=== PATIENT | male | born 1955 | race Caucasian/White ===

== ENCOUNTER → 2022-08-05 | Outpatient (CLI) | payer MEDICARE, OTHER ==
--- NOTE | 2022-08-05 15:33 | US ---
EXAMINATION TYPE: US liver DATE OF EXAM: 08/05/2022 COMPARISON: US Renal 04/22/17 CLINICAL INDICATION: Male, 66 years old with history of K74.60 UNSPECIFIED CIRRHOSIS OF LIVER; Cirrho sis. Hx appendectomy. TECHNIQUE: Multiple sonographic images of the right upper quadrant are obtained. FINDINGS: EXAM MEASUREMENTS: Liver Length: 14.1 cm Gallbladder Wall: 0.2 cm CBD: Obscured Right Kidney: 11.8 x 6.4 x 5.1 cm MUFFLE OPERATOR NOTES: Limited due to overlying bowel gas. Pancreas: Only a small portion of the pancreatic neck is seen. Remainder is obscured by bowel gas sh adowing. Liver: Course and echogenic parenchyma. No focal lesion seen. Gallbladder: Fold seen. No abnormal distention, wall thickening, pericholecystic fluid, or shadowing calculi. Evidence for sonographic Garrett's sign: No CBD: Obscured Right Kidney: No hydronephrosis or masses seen IMPRESSION: 1. At least moderate hepatic steatosis. Correlate with LFTs, lipid profile, the patient risk factors. 2. No gallstones. 3. Unable to adequately assess the bile duct or pancreas due to obscuration from bowel gas.
== END | disposition home or self-care (01) ==
LOC: RADUSWWP 08:05
PROVIDERS: ATTEND Internal Medicine Gastroenterology
DX: K76.0 Fatty (change of) liver, not elsewhere classified (principal); K74.60 Unspecified cirrhosis of liver; Z90.49 Acquired absence of other specified parts of digestive tract
CPT/HCPCS: 76705

== ENCOUNTER 2023-11-26 18:10 | Inpatient (IN) | payer MEDICARE ==
--- NOTE | 2023-11-26 18:32 | ED ---
General Adult HPI - General Chief complaint: Altered Mental Status Stated complaint: AMS Time Seen by Provider: 11/26/23 18:12 Source: patient, RN notes reviewed, old records reviewed Limitations: altered mental status - History of Present Illness Initial comments: 67-year-old male presenting with confusion, poor oral intake. The patient was brought in by paramedics with at least several days of worsening confusion. There was multiple medications including Rosine and there was concern that the medications may not be taken appropriately. The patient is able to answer basic questions. Pinpoint pupils on exam. Patient admits to not eating or drinking well for the past several days. Denies alcohol. Denies illicit drugs. No focal neurologic findings according to paramedics. - Related Data Home Medications Medication Instructions Recorded Confirmed ALPRAZolam [Xanax] 1 mg PO TID PRN 11/26/23 11/26/23 Docusate [Colace] 100 mg PO Q12H PRN 11/26/23 11/26/23 HYDROcodone/APAP 10-325MG [Rosine 1 tab PO QID 11/26/23 11/26/23 10-325] HYDROcodone/APAP 5-325MG [Rosine 1 tab PO DAILY PRN 11/26/23 11/26/23 5-325] Simvastatin [Zocor] 20 mg PO HS 11/26/23 11/26/23 Tolterodine ER [Detrol LA] 4 mg PO DAILY 11/26/23 11/26/23 lisinopriL [Zestril] 20 mg PO DAILY 11/26/23 11/26/23 metFORMIN HCL 500 mg PO TID-W/MEALS 11/26/23 11/26/23 Allergies Allergy/AdvReac Type Severity Reaction Status Date / Time tetracycline Allergy Unknown Verified 11/26/23 19:44 Review of Systems ROS Statement: Those systems with pertinent positive or pertinent negative responses have been documented in the HPI. ROS Other: All systems not noted in ROS Statement are negative. Past Medical History Past Medical History: Diabetes Mellitus History of Any Multi-Drug Resistant Organisms: None Reported Past Surgical History: Unable to Obtain Past Psychological History: Unable to Obtain Smoking Status: Never smoker Past Alcohol Use History: None Reported Past Drug Use History: None Reported General Exam Limitations: no limitations General appearance: in no apparent distress Head exam: Present: atraumatic, normocephalic Eye exam: Absent: PERRL (pinpoint) ENT exam: Present: mucous membranes dry Respiratory exam: Present: decreased breath sounds. Absent: respiratory distress Cardiovascular Exam: Present: regular rate, normal rhythm Extremities exam: Present: normal inspection, normal capillary refill Neurological exam: Present: alert. Absent: oriented X3, motor sensory deficit Skin exam: Present: warm, dry, intact Course Vital Signs 11/26/23 11/26/23 11/26/23 18:12 18:46 19:52 Temperature 96.9 F L Pulse Rate 87 89 80 Respiratory 18 16 Rate Blood Pressure 88/52 81/58 O2 Sat by Pulse 91 L 100 Oximetry 11/26/23 20:35 Temperature Pulse Rate 76 Respiratory 14 Rate Blood Pressure 103/62 O2 Sat by Pulse 100 Oximetry Medical Decision Making - Medical Decision Making Was pt. sent in by a medical professional or institution (JACKY Otero, PROMOTIONS OFFICER, urgent care, hospital, or prison...) When possible be specific @ -No Did you speak to anyone other than the patient for history (EMS, parent, family, police, friend...)? What history was obtained from this source @ -No Did you review nursing and triage notes (agree or disagree)? Why? @ -I reviewed and agree with nursing and triage notes Were old charts reviewed (outside hosp., previous admission, EMS record, old EKG, old radiological studies, urgent care reports/EKG's, prison records)? Report findings @ -No old charts were reviewed Differential Altered Mental Status: Hypoglycemia, DKA, hypercapnia, ETOH, overdose, CO poisoning, trauma, myxedema coma, HTN encephalopathy, infection, encephalitis, psychosis, intercranial hemorrhage, hepatic encephalopathy, meningitis, CVA, this is not meant to be an all-inclusive list EKG interpreted by me (3pts min.). @Sinus rhythm rate of 88, [place] interval 168, QRS duration 88, QTc [address] segment elevation. X-rays interpreted by me (1pt min.). @ -[Chest x-ray pending CT interpreted by me (1pt min.). @ -CT pending brain without contrast U/S interpreted by me (1pt. min.). @ -[None done What testing was considered but not performed or refused? (CT, X-rays, U/S, labs)? Why? @ -None What meds were considered but not given or refused? Why? @ -None Did you discuss the management of the patient with other professionals (professionals i.e. DrKelly, PA, PROMOTIONS OFFICER, lab, RT, psych nurse, social services coordinator, certified marine mechanic, teacher, placement officer, therapeutic case manager)? Give summary @ -No Was smoking cessation discussed for >3mins.? @ -No Was critical care preformed (if so, how long)? @ -No Were there social determinants of health that impacted care today? How? (Homelessness, low income, unemployed, alcoholism, drug addiction, transport ation, low edu. Level, literacy, decrease access to med. care, usp, rehab)? @ -No Was there de-escalation of care discussed even if they declined (Discuss DNR or withdrawal of care, Hospice)? DNR status @ -No What co-morbidities impacted this encounter? (DM, HTN, Smoking, COPD, CAD, Cancer, CVA, ARF, Chemo, Hep., AIDS, mental health diagnosis, sleep apnea, morbid obesity)? @ COPD Was patient admitted / discharged? Hospital course, mention meds given and route, prescriptions, significant lab abnormalities, going to OR and other pertinent info. @ -[67-year-old male with altered mental status. Care signed out at shift change awaiting chest x-ray, laboratory testing, CT brain. Patient started on IV fluids for dehydration. Undiagnosed new problem with uncertain prognosis? @ -No Drug Therapy requiring intensive monitoring for toxicity (Heparin, Nitro, Insulin, Cardizem)? @ -No Were any procedures done? @ -No Diagnosis/symptom? @ -AMS, dehydration Acute, or Chronic, or Acute on Chronic? @ acute Uncomplicated (without systemic symptoms) or Complicated (systemic symptoms)? @ -Default Side effects of treatment? @ -No Exacerbation, Progression, or Severe Exacerbation? @ -No Poses a threat to life or bodily function? How? (Chest pain, USA, AR, pneumonia, PE, COPD, DKA, ARF, appy, cholecystitis, CVA, Diverticulitis, Homicidal, Suicidal, threat to staff... and all critical care pts) @ -[yes, CVA, medication overuse - Lab Data Result diagrams: 11/26/23 18:33 11/26/23 18:33 Lab Results 11/26/23 11/26/23 11/26/23 Range/Units 18:31 18:33 18:33 WBC 7.9 (3.8-10.6) k/uL RBC 4.03 L (4.30-5.90) m/uL Hgb 13.0 (13.0-17.5) gm/dL Hct 40.2 (39.0-53.0) % MCV 99.8 (80.0-100.0) fL MCH 32.3 (25.0-35.0) pg MCHC 32.4 (31.0-37.0) g/dL RDW 13.0 (11.5-15.5) % Plt Count 106 L (150-450) k/uL MPV 9.0 Neutrophils % 85 % Lymphocytes % 10 % Monocytes % 2 % Eosinophils % 1 % Basophils % 1 % Neutrophils # 6.7 (1.3-7.7) k/uL Lymphocytes # 0.8 L (1.0-4.8) k/uL Monocytes # 0.2 (0-1.0) k/uL Eosinophils # 0.1 (0-0.7) k/uL Basophils # 0.1 (0-0.2) k/uL PT 10.5 (10.0-12.5) sec INR 0.9 (<1.2) APTT 26.1 (22.0-30.0) sec VBG pH (7.31-7.41) VBG pCO2 (37-51) mmHg VBG HCO3 (24-28) mmol/L Sodium (137-145) mmol/L Potassium (3.5-5.1) mmol/L Chloride (98-107) mmol/L Carbon Dioxide (22-30) mmol/L Anion Gap mmol/L BUN (9-20) mg/dL Creatinine (0.66-1.25) mg/dL Est GFR (CKD-EPI)AfAm (>60 ml/min/1.73 sqM) Est GFR (CKD-EPI)NonAf (>60 ml/min/1.73 sqM) Glucose (74-99) mg/dL POC Glucose (mg/dL) 168 H (70-110) mg/dL POC Glu Glued Wood Tester ID Fletcher, Vikash Calcium (8.4-10.2) mg/dL Total Bilirubin (0.2-1.3) mg/dL AST (17-59) U/L ALT (4-49) U/L Alkaline Phosphatase (38-126) U/L Total Protein (6.3-8.2) g/dL Albumin (3.5-5.0) g/dL 11/26/23 11/26/23 Range/Units 18:33 18:33 WBC (3.8-10.6) k/uL RBC (4.30-5.90) m/uL Hgb (13.0-17.5) gm/dL Hct (39.0-53.0) % MCV (80.0-100.0) fL MCH (25.0-35.0) pg MCHC (31.0-37.0) g/dL RDW (11.5-15.5) % Plt Count (150-450) k/uL MPV Neutrophils % % Lymphocytes % % Monocytes % % Eosinophils % % Basophils % % Neutrophils # (1.3-7.7) k/uL Lymphocytes # (1.0-4.8) k/uL Monocytes # (0-1.0) k/uL Eosinophils # (0-0.7) k/uL Basophils # (0-0.2) k/uL PT (10.0-12.5) sec INR (<1.2) APTT (22.0-30.0) sec VBG pH 7.36 (7.31-7.41) VBG pCO2 52 H (37-51) mmHg VBG HCO3 29 H (24-28) mmol/L Sodium 140 (137-145) mmol/L Potassium 5.8 H (3.5-5.1) mmol/L Chloride 103 (98-107) mmol/L Carbon Dioxide 28 (22-30) mmol/L Anion Gap 9 mmol/L BUN 34 H (9-20) mg/dL Creatinine 0.73 (0.66-1.25) mg/dL Est GFR (CKD-EPI)AfAm >90 (>60 ml/min/1.73 sqM) Est GFR (CKD-EPI)NonAf >90 (>60 ml/min/1.73 sqM) Glucose 165 H (74-99) mg/dL POC Glucose (mg/dL) (70-110) mg/dL POC Glu Glued Wood Tester ID Calcium 9.8 (8.4-10.2) mg/dL Total Bilirubin 1.7 H (0.2-1.3) mg/dL AST 63 H (17-59) U/L ALT 28 (4-49) U/L Alkaline Phosphatase 90 (38-126) U/L Total Protein 8.5 H (6.3-8.2) g/dL Albumin 4.7 (3.5-5.0) g/dL Disposition Clinical Impression: Altered mental status, Dehydration Disposition: ADMITTED IP TO THIS HOSP Condition: Stable Is patient prescribed a controlled substance at d/c from ED?: No Referrals: Alexis Lincoln MD [Primary Care Provider] - 1-2 days Time of Disposition: 20:41
[2023-11-26 18:33] LABS: Glucose,Whole Blood 168 mg/dL (70-110)
[2023-11-26] MEDS: SODIUM CHLORIDE 0.9% 1,000 ML IV ONE (18:38)
[2023-11-26] MEDS: IPRATROPIUM-ALBUTEROL 3 ML NEB INHALATION STA (18:45)
[2023-11-26 18:53] LABS: VBG PH 7.36 (7.31-7.41)
[2023-11-26 18:54] LABS: Basophils # (A) 0.1 k/uL (0-0.2); Basophils % (A) 1 %; Eosinophils # (A) 0.1 k/uL (0-0.7); Eosinophils % (A) 1 %; HCT 40.2 % (39.0-53.0); Lymphocytes # (A) 0.8 k/uL (1.0-4.8); Lymphocytes % (A) 10 %; MCH 32.3 pg (25.0-35.0); MCHC 32.4 g/dL (31.0-37.0); MCV 99.8 fL (80.0-100.0); Monocytes # (A) 0.2 k/uL (0-1.0); Monocytes % (A) 2 %; Neutrophils # (A) 6.7 k/uL (1.3-7.7); Neutrophils % (A) 85 %; Platelet Count 106 k/uL (150-450); RBC 4.03 m/uL (4.30-5.90); WBC 7.9 k/uL (3.8-10.6)
[2023-11-26 19:04] LABS: INR 0.9 (<1.2); Partial Thromboplastin Time 26.1 sec (22.0-30.0); Prothrombin Time 10.5 sec (10.0-12.5)
[2023-11-26 19:19] LABS: ALT 28 U/L (4-49); African American GFR (CKD) >90 (>60 ml/min/1.73 sqM); Albumin 4.7 g/dL (3.5-5.0); Anion Gap 9 mmol/L; Blood Urea Nitrogen 34 mg/dL (9-20); Calcium 9.8 mg/dL (8.4-10.2); Carbon Dioxide 28 mmol/L (22-30); Chloride 103 mmol/L (98-107); Glucose 165 mg/dL (74-99); Non-African American GFR(CKD) >90 (>60 ml/min/1.73 sqM); Sodium 140 mmol/L (137-145); Total Bilirubin 1.7 mg/dL (0.2-1.3); Total Protein 8.5 g/dL (6.3-8.2)
[2023-11-26 19:46] LABS: AST 63 U/L (17-59); Alkaline Phosphatase 90 U/L (38-126); Potassium 5.8 mmol/L (3.5-5.1)
[2023-11-26] MEDS ORDERED: NALOXONE 0.4 MG/ML 1 ML VIAL IV PRN (20:36)
--- NOTE | 2023-11-26 21:00 | CT ---
EXAMINATION TYPE: CT brain wo con CT DLP: 1133.4 mGycm, Automated exposure control for dose reduction was used. DATE OF EXAM: 11/26/2023 7:25 PM COMPARISON: None.. CLINICAL INDICATION:Male, 67 years old with history of Altered mental status, ams TECHNIQUE: Brain: Axial CT images of the brain were obtained with coronal and sagittal reformats created and rev iewed. Contrast used: None. Oral contrast used: None. FINDINGS: Extra-axial spaces: No abnormal extra-axial fluid collections. Basilar cisterns are patent. Ventricular system: Appears dilated slightly out of proportion to the degree of atrophy/sulcal promin ence, this can be seen with superimposed NPH. Cerebral parenchyma: No increased attenuation to suggest acute intraparenchymal hemorrhage. The gra y-white matter interface appears maintained. Moderate to severe generalized brain atrophy. Scattere d hypoattenuating areas are seen within the cerebral white matter, nonspecific but most often seen wi th chronic microvascular ischemic changes; moderate in degree. Cerebellum: No acute abnormality. Mass effect: No evidence of mass effect or midline shift. Intracranial vasculature: Atherosclerotic calcifications of the larger arteries near the skull base. Soft tissues: No acute or concerning abnormality. Visualized orbits: Orbital contents appear grossly intact. Calvarium/osseous structures: No evidence of calvarial fracture. Paranasal sinuses and mastoid air cells: Clear. MRI is more sensitive for detecting acute processes such as infarct, and may be considered if clinica lly warranted. IMPRESSION: 1. No CT evidence of an acute intracranial abnormality. 2. Atrophy and chronic microvascular ischemic white matter changes. Correlate for possible superimpos ed NPH.
[2023-11-26] MEDS ORDERED: IPRATROPIUM-ALBUTEROL 3 ML NEB INHALATION PRN (21:33)
[2023-11-26] MEDS: ACETAMINOPHEN TAB 325 MG TAB PO PRN (22:31)
--- NOTE | 2023-11-26 22:47 | XR ---
EXAMINATION TYPE: XR chest 2V DATE OF EXAM: 11/26/2023 7:12 PM CLINICAL INDICATION:Male, 67 years old with history of ams; [facility] COMPARISON: None TECHNIQUE: XR chest 2V. Frontal and lateral views of the chest.. FINDINGS: Heart is not enlarged. Mildly tortuous and unfolded aorta. No significant vascular congestion. Lungs appear hyperinflated with interstitial coarsening, findings suggestive of COPD/emphysema. No de finite airspace consolidation, pleural effusion, or pneumothorax. Nodular density over the left lung base is felt to represent nipple shadow. ACDF hardware in lower cervical spine. Mild degenerative kellee nges of the shoulders and spine. Partially imaged thoracolumbar spinal fixation hardware. IMPRESSION: No evidence of an acute cardiopulmonary abnormality.
[2023-11-26] MEDS: SODIUM CHLORIDE 0.9% 1,000 ML IV SCH (23:38)
[2023-11-26] MEDS: methylPREDNISolone SOD SUCCI 125 MG/2 ML VIAL IV SCH (23:38)
[2023-11-27] MEDS ORDERED: IPRATROPIUM-ALBUTEROL 3 ML NEB INHALATION SCH
[2023-11-27] MEDS: IPRATROPIUM-ALBUTEROL 3 ML NEB INHALATION SCH (07:48)
[2023-11-27 12:11] LABS: Glucose,Whole Blood 269 mg/dL (70-110)
[2023-11-27 13:50] LABS: Appearance,Urine Clear (Clear); Bilirubin,Urine Negative (Negative); Blood,Urine Negative (Negative); Color,Urine Yellow; Glucose,Urine (UA) 4+ (Negative); Ketones,Urine Negative (Negative); Leukocyte Esterase,Urine Negative (Negative); Nitrite,Urine Negative (Negative); Protein,Urine Trace (Negative)
[2023-11-27] MEDS: DOCUSATE 100 MG CAP PO PRN (13:53)
[2023-11-27] MEDS: OXYBUTYNIN 10 MG TAB.ER.24 PO SCH (13:53)
[2023-11-27 13:59] LABS: Cocaine Screen,Urine Not Detected (NotDetected); Phencyclidine Screen,Urine Not Detected (NotDetected); Urn Cannabinoid Scrn Detected (NotDetected)
[2023-11-27 14:00] LABS: Amphetamine Screen,Urine Not Detected (NotDetected); Barbiturate Screen,Urine Not Detected (NotDetected); Benzodiazepines Screen,Urine Detected (NotDetected); Methadone Screen, Urine Not Detected (NotDetected); Opiate Screen,Urine Detected (NotDetected); Oxycodone Screen, Urine Detected (NotDetected); Tricyclic Antidepressant,Urine Not Detected (NotDetected)
[2023-11-27 17:00] LABS: Glucose,Whole Blood 277 mg/dL (70-110)
[2023-11-27] MEDS: INSULIN ASPART (NovoLOG) 100 UNIT/ML VIAL SQ SCH (17:34)
[2023-11-27 19:48] LABS: Glucose,Whole Blood 252 mg/dL (70-110)
[2023-11-27 19:48] LABS: Glucose,Whole Blood 505 mg/dL (70-110)
--- NOTE | 2023-11-27 20:43 | PN ---
PROGRESS NOTE CHIEF COMPLAINT: Mental status changes, dehydration, malnutrition. HISTORY OF PRESENT ILLNESS: This gentleman is awake and alert, but remains confused. He is not able to urinate. His blood sugars are also elevating. PHYSICAL EXAMINATION: CHEST: Clear. CARDIAC: Sounds sinus. ABDOMEN: Scaphoid. IMPRESSION: 1. Mental status changes. 2. Severe protein-calorie malnutrition. 3. Dehydration. 4. Opioid and tranquilizer abuse. 5. Urinary retention. 6. Elevated blood sugar. PLAN: 1. Plunkett catheter. 2. Sliding scale for blood sugars. 3. PT, OT, and Copy Manager consult. MMODL / IJN: [id number] /
--- NOTE | 2023-11-27 22:01 | HP ---
HISTORY AND PHYSICAL CHIEF COMPLAINT: Altered mental status. HISTORY OF PRESENT ILLNESS: This is the first known admission for this 67-year-old white male who has been a new patient in a practice. He is poorly nourished. He has been insistent on receiving large quantities of opioids and tranquilizers. He apparently was brought to the emergency room with difficulty walking, stating that he had injured his right foot. He does seem to be confused. REVIEW OF SYSTEMS: Is not reliably obtained. He is not complaining of any symptoms including headaches, chest pain, shortness of breath, abdominal pain, etc. Past medical history, family history, and personal and social histories are unremarkable and noncontributory otherwise. His blood sugar is elevated at this time. PHYSICAL EXAMINATION: VITAL SIGNS: Blood pressure is 98/58 with a pulse of 68, respirations of 14 and he is afebrile. GENERAL: He appeared to be weak and malnourished. He is dehydrated. HEAD, EARS, EYES, NOSE, MOUTH AND THROAT: Normal. CHEST: Clear. CARDIAC: Sounds like sinus rhythm. ABDOMEN: Flat and soft. The bladder is distended. EXTREMITIES: Normal except for poor muscle bulk. NEUROLOGICAL: Intact. He is admitted to the hospital with diagnoses of, 1. General weakness and debility. 2. Mental status changes with confusion. 3. Severe protein-calorie malnutrition. 4. Urinary retention. 5. Elevated blood sugars. PLAN: 1. Bed rest. 2. IV fluids. 3. Plunkett catheter drainage. 4. Sliding scale for blood sugars. 5. Continue to look further into his symptoms. 6. PT and OT. 7. Withhold his opioid and Xanax. MMODL / IJN: [id number] /
[2023-11-27 22:21] LABS: Glucose,Whole Blood 299 mg/dL (70-110)
[2023-11-28 06:53] LABS: Glucose,Whole Blood 190 mg/dL (70-110)
[2023-11-28 11:40] LABS: Glucose,Whole Blood 280 mg/dL (70-110)
[2023-11-28 12:07] VITALS: BMI 16.9
[2023-11-28] MEDS: ONDANSETRON 4 MG/2 ML VIAL IVP PRN (16:19)
--- NOTE | 2023-11-28 16:36 | P.CN ---
Psychiatric Consult - . Consult date: 11/28/23 Consult:: 11/28/23 16:35 CONSULTATION Reason for consult: Confusion. identifying Data: The patient is 67 years old, white male, who lives in [place], [place]. Reason for admission: Confusion and poor intake. History of present illness: The patient was brought to the emergency department by EMS. The patient noted that his neighbor, who lives down the [address] called the ambulance because he was not eating or drinking. The patient noted he was having nausea and hiccoughs preventing him to retain any food and fluids for a few days before coming to the hospital. He thinks that his poor nourishment led to confusion. He denied abusing opioids. During this evaluation, the patient was alert, attentive and held a goal directed coherent conversation. On leading questions denied depression, anxiety, hopelessness, worthlessness, suicidal or homicidal ideations. The patient denied to any symptoms of paranoia, or any other delusional thinking, A/V hallucinations. He is on no psychiatric medications. As per patient, he was not going to any out-patient psychiatric treatment. History of past psychiatric illness: The patient noted that he once went for group therapy for short time after losing his house due to lac of money. He was unable to pay the taxes. As per patient his house was paid off. No other out-pt or in-pt psychiatric history. He denied any history SI or HI.. Past medical history: DM Substance abuse history: The patient admitted to Marijuana abuse. He claims to be sober for past 1 year. MSE: Alert and attentive Orientation X3. Pleasant and cooperative. Psychomotor activity: Speech: Normal tone, quality, and quantity Mood: Anxious and worried. Affect: Appropriate to the mood. SI or HI: None Thought content: Normal Thought process: Normal Perceptual disturbance: Normal Cognition: Intact Judgement and Insight: Intact Diagnosis: No acute psychopathology currently. Plan: Will sign off the case. Please reconsult, if MS changes.
[2023-11-28 16:59] LABS: Glucose,Whole Blood 184 mg/dL (70-110)
[2023-11-28 20:11] LABS: Glucose,Whole Blood 304 mg/dL (70-110)
[2023-11-29 07:04] LABS: Glucose,Whole Blood 220 mg/dL (70-110)
[2023-11-29 11:59] LABS: Glucose,Whole Blood 306 mg/dL (70-110)
[2023-11-29 17:06] LABS: Glucose,Whole Blood 289 mg/dL (70-110)
[2023-11-29 19:55] LABS: Glucose,Whole Blood 291 mg/dL (70-110)
--- NOTE | 2023-11-29 21:06 | PN ---
PROGRESS NOTE CHIEF COMPLAINT: Mental status changes, dehydration and malnutrition as well as elevated blood sugars. HISTORY OF PRESENT ILLNESS: This gentleman has become more awake and alert. He has been seen by Psychiatry. His blood sugars are still elevated and he will be started on a long-acting insulin. PHYSICAL EXAMINATION: CHEST: Clear CARDIAC: Normal. ABDOMEN: Flat and soft. IMPRESSION: 1. Mental status changes. 2. Dehydration. 3. Elevated blood sugars. 4. Opioid and tranquilizers abuse. PLAN: Add Levemir 10 units once a day and continue to monitor his blood sugars. MMODL / IJN: [id number] /
--- NOTE | 2023-11-29 21:40 | PN ---
PROGRESS NOTE CHIEF COMPLAINT: Mental status changes, malnutrition, dehydration. HISTORY OF PRESENT ILLNESS: This gentleman is doing fairly well. His blood sugar is significantly elevated, however. This will be addressed. This is a new issue for him. PHYSICAL EXAMINATION: GENERAL: He is still very dehydrated and quite cachectic. HEAD, EARS, EYES, NOSE, MOUTH AND THROAT: Normal. CHEST: Clear. CARDIAC: Unremarkable. ABDOMEN: Flat, soft, nontender. IMPRESSION: 1. Mental status changes. 2. Severe protein-calorie malnutrition. 3. Tachycardia. 4. Elevated blood sugar. PLAN: 1. Address blood sugars. 2. Physical Therapy and Roller Presser Operator. MMODL / IJN: [id number] /
[2023-11-30 07:06] LABS: Glucose,Whole Blood 229 mg/dL (70-110)
[2023-11-30] MEDS: INSULIN DETEMIR (LEVEMIR) 100 UNIT/ML SYR SQ SCH (08:41)
[2023-11-30 11:59] LABS: Glucose,Whole Blood 238 mg/dL (70-110)
[2023-11-30 17:03] LABS: Glucose,Whole Blood 120 mg/dL (70-110)
[2023-11-30] MEDS: lisinopriL 20 MG TAB PO SCH (17:40)
[2023-11-30 20:08] LABS: Glucose,Whole Blood 228 mg/dL (70-110)
[2023-12-01 08:49] LABS: Glucose,Whole Blood 298 mg/dL (70-110)
[2023-12-01 11:53] LABS: Glucose,Whole Blood 209 mg/dL (70-110)
--- NOTE | 2023-12-01 15:34 | P.CN ---
Psychiatric Consult - . Consult date: 12/01/23 Consult:: 12/01/23 15:33 CONSULTATION Reason for consult: Confusion. identifying Data: The patient is 67 years old, white male, who lives in [place], [place]. Reason for admission: Confusion and poor intake. History of present illness: The patient was brought to the emergency department by EMS. The patient noted that his neighbor, who lives down the [address] called the ambulance because he was not eating or drinking. The patient noted he was having nausea and hiccoughs preventing him to retain any food and fluids for a few days before coming to the hospital. He thinks that his poor nourishment led to confusion. He denied abusing opioids. During this evaluation, the patient was alert, attentive and held a goal directed coherent conversation. On leading questions denied depression, anxiety, hopelessness, worthlessness, suicidal or homicidal ideations. The patient denied to any symptoms of paranoia, or any other delusional thinking, A/V hallucinations. He is on no psychiatric medications. As per patient, he was not going to any out-patient psychiatric treatment. History of past psychiatric illness: The patient noted that he once went for group therapy for short time after losing his house due to lac of money. He was unable to pay the taxes. As per patient his house was paid off. No other out-pt or in-pt psychiatric history. He denied any history SI or HI.. Past medical history: DM Substance abuse history: The patient admitted to Marijuana abuse. He claims to be sober for past 1 year. During this evaluation, the patient was seeing TV. He could not tell me what he was watching except stating, some politics.. He was unable to tell me the name of the hospital, where he is, when he came here, reason for being here, location of the building, name of the building, except stating it is . He was unable to hold any meaningful conversation. MSE: Alert and semi attentive Orientation X1 He appeared frail and weak. Pleasant and cooperative. Psychomotor activity: Reduced. Speech: Normal tone, quality, underproductive. Mood: Could not be assessed. Affect: Perplexed and indifferent. SI or HI: None noted Thought content: No Over delusions noted. Thought process: No thought disorder noted. Perceptual disturbance: No hallucinatory behavior noted. 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 Rec: Ativan 0.25 mg po prn q6hrs for severe agitation/anxiety. Fall precautions. Continue current treatment as per your recommendations. Sign off the case.
[2023-12-01 17:37] LABS: Glucose,Whole Blood 166 mg/dL (70-110)
[2023-12-01] MEDS ORDERED: LORazepam 1 MG TAB PO PRN (20:13)
[2023-12-01 22:55] LABS: Glucose,Whole Blood 225 mg/dL (70-110)
[2023-12-01] MEDS: QUEtiapine 100 MG TAB PO SCH (23:03)
[2023-12-02] MEDS: LORazepam 2 MG/ML INJ IV PRN (02:49)
[2023-12-02 07:38] LABS: Glucose,Whole Blood 151 mg/dL (70-110)
[2023-12-02 12:29] LABS: Glucose,Whole Blood 311 mg/dL (70-110)
[2023-12-02 17:15] LABS: Glucose,Whole Blood 177 mg/dL (70-110)
[2023-12-02 19:45] LABS: Glucose,Whole Blood 183 mg/dL (70-110)
--- NOTE | 2023-12-02 20:52 | PN ---
PROGRESS NOTE DATE OF SERVICE: 12/01/2023 CHIEF COMPLAINT: General debility, weakness and confusion. HISTORY OF PRESENT ILLNESS: This gentleman remains confused and agitated. He is inappropriate. He has been seen by Psychiatry. PHYSICAL EXAMINATION: GENERAL: Remains weak, pale and asthenic. HEAD, EARS, EYES, NOSE, MOUTH AND THROAT: Normal. CHEST: Clear. CARDIAC: Normal. IMPRESSION: 1. Mental status changes. 2. Dehydration. 3. Malnutrition. 4. Acute psychosis. PLAN: He will be re-evaluated by Psychiatry. MMODL / IJN: [id number] /
--- NOTE | 2023-12-03 01:31 | PN ---
PROGRESS NOTE DATE OF SERVICE: 11/30/2023 CHIEF COMPLAINT: Altered mental status, dehydration and malnutrition. HISTORY OF PRESENT ILLNESS: This gentleman remains confused. Vital signs have been normal. He is not eating or drinking well. PHYSICAL EXAMINATION: GENERAL: He remains very asthenic and he is dehydrated. CHEST: Clear. CARDIAC: Normal. ABDOMEN: Soft, nontender. IMPRESSION: 1. Mental status changes. 2. Dehydration. 3. Malnutrition. 4. ?Acute psychosis. PLAN: Continue to monitor. His mental status is not improving. MMODL / IJN: [id number] /
[2023-12-03 07:13] LABS: Glucose,Whole Blood 188 mg/dL (70-110)
--- NOTE | 2023-12-03 10:56 | P.PN ---
Progress Note - Text Progress Note Date: 12/03/23 Subjective: The patient was unable to hold any meaningful conversation. He has been waxing and waning in to delirium. As per his daughter, the patient was very confused, disoriented, and unable to hold any meaningful conversation yesterday. He was a little better today but then became confused and then became incoherent. The daughter indicated that the patient has had struggled with his cognition off and on for several years. 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 Objective MSE: Alert and semi attentive Orientation X1 He appeared frail and weak. Pleasant and cooperative. Psychomotor activity: Reduced. Speech: Normal tone, quality, underproductive. Mood: Could not be assessed. Affect: Perplexed and indifferent. SI or HI: None noted Thought content: No Over delusions noted. Thought process: No thought disorder noted. 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 Ativan 0.5 mg po/im prn q6hrs for severe agitation/anxiety. Hold, if bp less than 90/60 or patient too sedated or unsteady of feet. Fall precautions. Safety protocol The patient will require supervised structured living setting post discharge. Sign off the case.
[2023-12-03 12:06] LABS: Glucose,Whole Blood 217 mg/dL (70-110)
[2023-12-03 17:06] LABS: Glucose,Whole Blood 206 mg/dL (70-110)
[2023-12-03 20:08] LABS: Glucose,Whole Blood 241 mg/dL (70-110)
[2023-12-03] MEDS: INSULIN DETEMIR (LEVEMIR) 100 UNIT/ML SYR SQ SCH (20:17)
[2023-12-03] MEDS: QUEtiapine 100 MG TAB PO SCH (20:18)
[2023-12-04 07:05] LABS: Glucose,Whole Blood 169 mg/dL (70-110)
[2023-12-04] MEDS: OLANZapine 2.5 MG TAB PO SCH (08:44)
[2023-12-04 12:12] LABS: Glucose,Whole Blood 222 mg/dL (70-110)
[2023-12-04 17:53] LABS: Glucose,Whole Blood 219 mg/dL (70-110)
[2023-12-04 20:13] LABS: Glucose,Whole Blood 195 mg/dL (70-110)
[2023-12-05] MEDS: INSULIN DETEMIR (LEVEMIR) 100 UNIT/ML SYR SQ SCH (08:15)
[2023-12-05] MEDS ORDERED: ZINC OXIDE PASTE (Z-GUARD) 1 APPLIC TOPICAL PRN (11:43)
[2023-12-05 12:14] LABS: Glucose,Whole Blood 209 mg/dL (70-110)
[2023-12-05 17:06] LABS: Glucose,Whole Blood 269 mg/dL (70-110)
[2023-12-05 19:35] LABS: Glucose,Whole Blood 243 mg/dL (70-110)
[2023-12-06 01:30] VITALS: RESP 16
[2023-12-06 06:57] LABS: Glucose,Whole Blood 339 mg/dL (70-110)
[2023-12-06 11:56] LABS: Glucose,Whole Blood 139 mg/dL (70-110)
[2023-12-06 13:08] VITALS: BP 109/60; PULSE 74; TEMP 98.1
[2023-12-06] MEDS ORDERED: MIRTAZAPINE 15 MG TAB PO SCH (21:00)
--- NOTE | 2023-12-06 22:04 | PN ---
PROGRESS NOTE DATE OF SERVICE: 12/03/2023 CHIEF COMPLAINT: Mental status changes, psychosis, dehydration and malnutrition. HISTORY OF PRESENT ILLNESS: This gentleman is doing very well, but he is still confused. He has been seen by Psychiatry. They have not made any further recommendations, but he does have an acute psychosis and there is a concern because he apparently lives alone. PHYSICAL EXAMINATION: GENERAL: He is alert, but confused. HEAD, EARS, EYES, NOSE, MOUTH: Normal. CHEST: Clear. CARDIAC: Normal. ABDOMEN: Soft, nontender. IMPRESSION: 1. Mental status changes. 2. Malnutrition. 3. Confusion. 4. Acute psychosis. PLAN: Try adding several other medications to see if we can manage his psychosis. We are working on a discharge plan. TOM / JASWANT: [id number] /
--- NOTE | 2023-12-07 22:09 | PN ---
PROGRESS NOTE DATE OF SERVICE: 12/04/2023 CHIEF COMPLAINT: Acute mental status changes, dehydration and malnutrition. HISTORY OF PRESENT ILLNESS: This gentleman is doing fairly well, but he remains confused and has been somewhat combative with the staff. This may be a psychosis. Blood sugars are slightly high also. Insulin will be increased. PHYSICAL EXAMINATION: GENERAL: He is awake and alert, but confused. CHEST: Clear. CARDIAC: Normal. IMPRESSION: 1. Acute mental status changes. 2. Acute psychosis. 3. Malnutrition. 4. Dehydration. 5. Failure to thrive. 6. Elevated blood sugars. PLAN: 1. Continue to monitor his mental status and he will be reassessed by Psychiatry. 2. Increase insulin management. MMODL / IJN: [id number] /
--- NOTE | 2023-12-07 22:52 | PN ---
PROGRESS NOTE DATE OF SERVICE: 12/05/2023 CHIEF COMPLAINT: General debility, mental status changes, acute psychosis, malnutrition and dehydration along with elevated blood sugar. HISTORY OF PRESENT ILLNESS: This gentleman is doing well, but his blood sugars are staying fairly high and this is being addressed. PHYSICAL EXAMINATION: VITAL SIGNS: Normal. GENERAL: He is awake and alert and does not seem to be as aggressive and now that he is on certain medications. He has been seen by Psychiatry and physical exam is unchanged. IMPRESSION: 1. General debility and weakness. 2. Dehydration. 3. Mental status changes. 4. Acute psychosis. 5. Elevated blood sugars. PLAN: Continue to adjust his medications and manage his diabetes. MMODL / IJN: [id number] /
--- NOTE | 2023-12-08 02:46 | DS ---
DISCHARGE SUMMARY CHIEF COMPLAINT: Mental status changes. HISTORY OF PRESENT ILLNESS AND PHYSICAL EXAM: Details of this man's history and physical can be found in the initial workup. LABORATORY STUDIES: While he was in the hospital, he had laboratory studies, details of which can be found in the laboratory section of his chart. COURSE IN HOSPITAL: After admission, he was placed on bedrest and started on intravenous fluids and rehydrated. He remained confused and at times became very combative and psychotic. He was seen and evaluated by Psychiatry. The medications were introduced, which did seem to control his behavior. Toward the end of his hospitalization, it was felt that he was fairly well oriented and could safely be discharged. He was felt that he might need to go to a rehab center, but the family thought he could manage at home and he was discharged. He was told that he will be taken off a lot of the medications that he has been on including a very high dose of Vicodin along with Xanax. His blood sugars were elevated in the hospital as well and these will be followed. He presently will not be sent home on anything for his blood sugars pending management in the office. FINAL DIAGNOSES: 1. Mental status changes. 2. Dehydration. 3. Severe protein-calorie malnutrition. 4. Acute psychosis. 5. Elevated blood sugars. OPERATIONS: None. CONSULTATIONS: Psychiatry. He is improved. MMGAETANOL / JASWANT: [id number] /
== END 2023-12-06 16:00 | disposition home health service (06) | DRG 896 ==
LOC: EC 18:10 → OBSVTOIN 20:36 → 6NMEDSUR 20:36 → 5NMEDONC 22:32
PROVIDERS: ADMIT Family Medicine; ATTEND Family Medicine
DX: F10.27 Alcohol dependence with alcohol-induced persisting dementia (principal); E43 Unspecified severe protein-calorie malnutrition; Z68.1 Body mass index [BMI] 19.9 or less, adult; F23 Brief psychotic disorder; E86.0 Dehydration; F13.10 Sedative, hypnotic or anxiolytic abuse, uncomplicated; R62.7 Adult failure to thrive; E11.65 Type 2 diabetes mellitus with hyperglycemia; R33.9 Retention of urine, unspecified; R45.1 Restlessness and agitation; F11.10 Opioid abuse, uncomplicated; R00.0 Tachycardia, unspecified; Z63.5 Disruption of family by separation and divorce; Z79.84 Long term (current) use of oral hypoglycemic drugs; Z79.899 Other long term (current) drug therapy; Z88.1 Allergy status to other antibiotic agents
CPT/HCPCS: 36415; 70450; 71046; 80053; 80143; 80306; 81003; 82803; 83036; 85025; 85610; 85730; 93005; 96361; 96374; 99285

== ENCOUNTER 2024-06-07 19:12 | Inpatient (IN) | payer MEDICARE ==
[2024-06-07 19:26] LABS: Glucose,Whole Blood 189 mg/dL (70-110)
--- NOTE | 2024-06-07 19:52 | ED ---
Weakness HPI - General Chief complaint: Fall Stated complaint: fall, weakness Time Seen by Provider: 06/07/24 19:14 Source: patient, family, EMS, RN notes reviewed Mode of arrival: EMS Limitations: no limitations - History of Present Illness Initial comments: This is a 68-year-old male who presents to the emergency department for weakness and back pain. Patient states that he has been dealing with back pain and essentially fell down into a chair. He was unable to get himself out based on the position and his pain. States that he was in the chair for over a day and his daughter called EMS. He does live alone. He still complains of pain to the mid to lower back. States that in general he feels weak and has not eaten for several days. Denies any chest pain or shortness of breath. When his daughter arrived, she advised that she found his house covered in his feces and empty alcohol cans. She also found his medication in the oven and determined he was not taking any of it. She is concerned about his ability to continue safely living at home by himself. Patient states that his last alcoholic drink was 2 days ago. He does report a history of alcohol withdrawals and seizures. MD Complaint: generalized weakness - Related Data Home Medications Medication Instructions Recorded Confirmed Tolterodine ER [Detrol LA] 4 mg PO DAILY 11/26/23 06/07/24 Acamprosate Calcium [Campral] 333 mg PO TID 06/07/24 06/07/24 HYDROcodone/APAP 10-325MG [[place] 1 tab PO Q6H PRN 06/07/24 06/07/24 10-325] Oxybutynin Chloride [oxyBUTYnin 10 mg PO DAILY 06/07/24 06/07/24 chloride ER] Pantoprazole [Protonix] 40 mg PO DAILY 06/07/24 06/07/24 Simvastatin [Zocor] 20 mg PO HS 06/07/24 06/07/24 lisinopriL 40 mg PO DAILY 06/07/24 06/07/24 metFORMIN HCL 500 mg PO TID 06/07/24 06/07/24 Previous Rx's Medication Instructions Recorded Mirtazapine [Remeron] 15 mg PO HS #10 tab 12/06/23 Allergies Allergy/AdvReac Type Severity Reaction Status Date / Time tetracycline Allergy Unknown Verified 06/07/24 20:39 Review of Systems ROS Statement: Those systems with pertinent positive or pertinent negative responses have been documented in the HPI. ROS Other: All systems not noted in ROS Statement are negative. Past Medical History Past Medical History: Diabetes Mellitus History of Any Multi-Drug Resistant Organisms: None Reported Past Surgical History: Back Surgery, Orthopedic Surgery Additional Past Surgical History / Comment(s): 3 knee surgeries, neck surgery Past Anesthesia/Blood Transfusion Reactions: No Reported Reaction Past Psychological History: No Psychological Hx Reported Smoking Status: Never smoker Past Alcohol Use History: None Reported Past Drug Use History: None Reported General Exam Limitations: no limitations General appearance: alert, in no apparent distress Head exam: Present: atraumatic, normocephalic, normal inspection Respiratory exam: Present: normal lung sounds bilaterally. Absent: respiratory distress, wheezes, rales, rhonchi, stridor Cardiovascular Exam: Present: normal rhythm, tachycardia GI/Abdominal exam: Present: soft, normal bowel sounds. Absent: distended, tenderness, guarding, rebound, rigid Neurological exam: Present: alert, oriented X3, CN II-XII intact Psychiatric exam: Present: normal affect, normal mood Skin exam: Present: warm, dry, intact, normal color. Absent: rash Course Vital Signs 06/07/24 06/07/24 19:17 23:00 Temperature 98.7 F Pulse Rate 105 H 87 Respiratory 16 18 Rate Blood Pressure 167/69 165/78 O2 Sat by Pulse 98 Oximetry Medical Decision Making - Medical Decision Making This is a 68-year-old male who presents to the emergency department for weakness. Was pt. sent in by a medical professional or institution? @ -No Did you speak to anyone other than the patient for history? @ -His daughter provided the majority of the history Did you review nursing and triage notes? @ -Yes, and I agree, it is accurate with regards to the patient's symptoms. Were old charts reviewed? @ -No Differential Diagnosis? @ -Differential Weakness: Hypoglycemia, shock, sepsis, hyponatremia, anemia, infection, TX, ETOH, adverse medicine reaction, overdose, stroke, this is not meant to be an all-inclusive list. EKG interpreted by me (3pts min.)? @ -EKG interpreted by me demonstrating the following: Sinus tachycardia. Ventricular rate 105 bpm, NJ interval 152 ms, QRS duration 82 ms, QTc 385 ms. X-rays interpreted by me (1pt min.)? @ -Chest x-ray obtained, my interpretation identifies no localized consolidations or infiltrates. X-ray of the lumbar spine obtained. My interpretation identifies no acute fractures. CT interpreted by me (1pt min.)? @ -CTA of the chest obtained. My interpretation identifies no evidence of a pulmonary embolus. U/S interpreted by me (1pt. min.)? @ -Not obtained What testing was considered but not performed? (CT, X-rays, U/S, labs)? Why? @ -None What meds were considered but not given? Why? @ -None Did you discuss the management of the patient with other professionals? @ -Yes, Nicole Dougherty with [facility], who accepts the patient for admission. Did you reconcile home meds? @ -No Was smoking cessation discussed for >3mins.? @ -No Was critical care preformed (if so, how long)? @ -No Were there social determinants of health that impacted care today? How? (Homelessness, low income, unemployed, alcoholism, drug addiction, transpor tation, low edu. Level, literacy, decrease access to med. care, assisted, rehab)? @ -No Was there de-escalation of care discussed even if they declined? (Discuss DNR or withdrawal of care, Hospice)? @ -No What co-morbidities impacted this encounter? (DM, HTN, Smoking, COPD, CAD, Cancer, CVA, Hep., AIDS, mental health diagnosis, sleep apnea, morbid obesity)? @ -DM Was patient admitted / discharged? @ -Admitted. Lab work demonstrates mild leukocytosis with a white blood cell count of 11.3. Lactic acid mildly elevated at 2.1. D-dimer elevated at 14.75. COVID, influenza, and RSV testing negative. Urinalysis negative for signs of infection. X-ray of the chest and lumbar spine obtained revealing no acute process. CTA of the chest obtained revealing no evidence of a pulmonary embolus or other acute findings. Patient advised that he last drank alcohol 2 days ago and he appeared to be exhibiting withdrawal symptoms on exam. Given the disarray that his house was in and patient's inability to care for himself in association with the alcohol withdrawals, he was admitted to medicine for further management. [facility] protocol initiated. Consult placed for case management regarding possible ECF placement. Occupational and physical therapy consulted as well regarding the patient's weakness. Case discussed with ED attending Dr. Morales. Undiagnosed new problem with uncertain prognosis? @ -None Drug Therapy requiring intensive monitoring for toxicity (Heparin, Nitro, Insulin, Cardizem)? @ -None Were any procedures done? @ -None Diagnosis/symptom? @ -Failure to thrive, weakness, alcohol withdrawals Acute, or Chronic, or Acute on Chronic? @ -Acute Uncomplicated (without systemic symptoms) or Complicated (systemic symptoms)? @ -Complicated Side effects of treatment? @ -None Exacerbation, Progression, or Severe Exacerbation] @ -Not applicable Poses a threat to life or bodily function? @ -Yes, can lead to DTs, which can be fatal - Lab Data Result diagrams: 06/07/24 20:00 06/07/24 20:00 Lab Results 06/07/24 06/07/24 06/07/24 Range/Units 19:24 20:00 20:00 WBC 11.3 H (3.8-10.6) k/uL RBC 4.50 (4.30-5.90) m/uL Hgb 14.1 (13.0-17.5) gm/dL Hct 42.0 (39.0-53.0) % MCV 93.2 (80.0-100.0) fL MCH 31.2 (25.0-35.0) pg MCHC 33.5 (31.0-37.0) g/dL RDW 13.8 (11.5-15.5) % Plt Count 124 L (150-450) k/uL MPV 8.4 Neutrophils % 86 % Lymphocytes % 9 % Monocytes % 4 % Eosinophils % 1 % Basophils % 0 % Neutrophils # 9.6 H (1.3-7.7) k/uL Lymphocytes # 1.0 (1.0-4.8) k/uL Monocytes # 0.5 (0-1.0) k/uL Eosinophils # 0.1 (0-0.7) k/uL Basophils # 0.0 (0-0.2) k/uL PT (10.0-12.5) sec INR (<1.2) APTT (22.0-30.0) sec D-Dimer (<0.60) mg/L FEU Sodium 134 L (137-145) mmol/L Potassium 4.8 (3.5-5.1) mmol/L Chloride 95 L (98-107) mmol/L Carbon Dioxide 23 (22-30) mmol/L Anion Gap 16 mmol/L BUN 13 (9-20) mg/dL Creatinine 0.49 L (0.66-1.25) mg/dL Est GFR (CKD-EPI)AfAm >90 (>60 ml/min/1.73 sqM) Est GFR (CKD-EPI)NonAf >90 (>60 ml/min/1.73 sqM) Glucose 155 H (74-99) mg/dL POC Glucose (mg/dL) 189 H (70-110) mg/dL POC Glu Pouncer ID Lewis Pritchett Lactic Ac Sepsis Rflx Plasma Lactic Acid Jim (0.7-2.0) mmol/L Calcium 10.0 (8.4-10.2) mg/dL Magnesium 1.8 (1.6-2.3) mg/dL Total Bilirubin 1.7 H (0.2-1.3) mg/dL AST 39 (17-59) U/L ALT 21 (4-49) U/L Alkaline Phosphatase 165 H (38-126) U/L Creatine Kinase 120 (55-170) U/L Troponin I (0.000-0.034) ng/mL Total Protein 9.0 H (6.3-8.2) g/dL Albumin 5.2 H (3.5-5.0) g/dL Lipase (23-300) U/L Urine Color Urine Appearance (Clear) Urine pH (5.0-8.0) Ur Specific [place] (1.001-1.035) Urine Protein (Negative) Urine Glucose (UA) (Negative) Urine Ketones (Negative) Urine Blood (Negative) Urine Nitrite (Negative) Urine Bilirubin (Negative) Urine Urobilinogen (<2.0) mg/dL Ur Leukocyte Esterase (Negative) Urine RBC (0-5) /hpf Urine WBC (0-5) /hpf Ur Squamous Epith Cells (0-4) /hpf Amorphous Sediment (None) /hpf Hyaline Casts (0-2) /lpf Urine Mucus (None) /hpf Serum Alcohol mg/dL Influenza Type A (PCR) (Not Detectd) Influenza Type B (PCR) (Not Detectd) RSV (PCR) (Not Detectd) SARS-CoV-2 (PCR) (Not Detectd) 06/07/24 06/07/24 06/07/24 Range/Units 20:00 20:00 20:00 WBC (3.8-10.6) k/uL RBC (4.30-5.90) m/uL Hgb (13.0-17.5) gm/dL Hct (39.0-53.0) % MCV (80.0-100.0) fL MCH (25.0-35.0) pg MCHC (31.0-37.0) g/dL RDW (11.5-15.5) % Plt Count (150-450) k/uL MPV Neutrophils % % Lymphocytes % % Monocytes % % Eosinophils % % Basophils % % Neutrophils # (1.3-7.7) k/uL Lymphocytes # (1.0-4.8) k/uL Monocytes # (0-1.0) k/uL Eosinophils # (0-0.7) k/uL Basophils # (0-0.2) k/uL PT 10.9 (10.0-12.5) sec INR 1.0 (<1.2) APTT 29.2 (22.0-30.0) sec D-Dimer (<0.60) mg/L FEU Sodium (137-145) mmol/L Potassium (3.5-5.1) mmol/L Chloride (98-107) mmol/L Carbon Dioxide (22-30) mmol/L Anion Gap mmol/L BUN (9-20) mg/dL Creatinine (0.66-1.25) mg/dL Est GFR (CKD-EPI)AfAm (>60 ml/min/1.73 sqM) Est GFR (CKD-EPI)NonAf (>60 ml/min/1.73 sqM) Glucose (74-99) mg/dL POC Glucose (mg/dL) (70-110) mg/dL POC Glu Pouncer ID Lactic Ac Sepsis Rflx Plasma Lactic Acid Jim 2.1 H* (0.7-2.0) mmol/L Calcium (8.4-10.2) mg/dL Magnesium (1.6-2.3) mg/dL Total Bilirubin (0.2-1.3) mg/dL AST (17-59) U/L ALT (4-49) U/L Alkaline Phosphatase (38-126) U/L Creatine Kinase (55-170) U/L Troponin I (0.000-0.034) ng/mL Total Protein (6.3-8.2) g/dL Albumin (3.5-5.0) g/dL Lipase (23-300) U/L Urine Color Urine Appearance (Clear) Urine pH (5.0-8.0) Ur Specific [place] (1.001-1.035) Urine Protein (Negative) Urine Glucose (UA) (Negative) Urine Ketones (Negative) Urine Blood (Negative) Urine Nitrite (Negative) Urine Bilirubin (Negative) Urine Urobilinogen (<2.0) mg/dL Ur Leukocyte Esterase (Negative) Urine RBC (0-5) /hpf Urine WBC (0-5) /hpf Ur Squamous Epith Cells (0-4) /hpf Amorphous Sediment (None) /hpf Hyaline Casts (0-2) /lpf Urine Mucus (None) /hpf Serum Alcohol mg/dL Influenza Type A (PCR) Not Detected (Not Detectd) Influenza Type B (PCR) Not Detected (Not Detectd) RSV (PCR) Not Detected (Not Detectd) SARS-CoV-2 (PCR) Not Detected (Not Detectd) 06/07/24 06/07/24 06/07/24 Range/Units 20:00 20:00 20:24 WBC (3.8-10.6) k/uL RBC (4.30-5.90) m/uL Hgb (13.0-17.5) gm/dL Hct (39.0-53.0) % MCV (80.0-100.0) fL MCH (25.0-35.0) pg MCHC (31.0-37.0) g/dL RDW (11.5-15.5) % Plt Count (150-450) k/uL MPV Neutrophils % % Lymphocytes % % Monocytes % % Eosinophils % % Basophils % % Neutrophils # (1.3-7.7) k/uL Lymphocytes # (1.0-4.8) k/uL Monocytes # (0-1.0) k/uL Eosinophils # (0-0.7) k/uL Basophils # (0-0.2) k/uL PT (10.0-12.5) sec INR (<1.2) APTT (22.0-30.0) sec D-Dimer 14.75 H (<0.60) mg/L FEU Sodium (137-145) mmol/L Potassium (3.5-5.1) mmol/L Chloride (98-107) mmol/L Carbon Dioxide (22-30) mmol/L Anion Gap mmol/L BUN (9-20) mg/dL Creatinine (0.66-1.25) mg/dL Est GFR (CKD-EPI)AfAm (>60 ml/min/1.73 sqM) Est GFR (CKD-EPI)NonAf (>60 ml/min/1.73 sqM) Glucose (74-99) mg/dL POC Glucose (mg/dL) (70-110) mg/dL POC Glu Pouncer ID Lactic Ac Sepsis Rflx Y Plasma Lactic Acid Jim (0.7-2.0) mmol/L Calcium (8.4-10.2) mg/dL Magnesium (1.6-2.3) mg/dL Total Bilirubin (0.2-1.3) mg/dL AST (17-59) U/L ALT (4-49) U/L Alkaline Phosphatase (38-126) U/L Creatine Kinase (55-170) U/L Troponin I (0.000-0.034) ng/mL Total Protein (6.3-8.2) g/dL Albumin (3.5-5.0) g/dL Lipase 83 (23-300) U/L Urine Color Urine Appearance (Clear) Urine pH (5.0-8.0) Ur Specific [place] (1.001-1.035) Urine Protein (Negative) Urine Glucose (UA) (Negative) Urine Ketones (Negative) Urine Blood (Negative) Urine Nitrite (Negative) Urine Bilirubin (Negative) Urine Urobilinogen (<2.0) mg/dL Ur Leukocyte Esterase (Negative) Urine RBC (0-5) /hpf Urine WBC (0-5) /hpf Ur Squamous Epith Cells (0-4) /hpf Amorphous Sediment (None) /hpf Hyaline Casts (0-2) /lpf Urine Mucus (None) /hpf Serum Alcohol mg/dL Influenza Type A (PCR) (Not Detectd) Influenza Type B (PCR) (Not Detectd) RSV (PCR) (Not Detectd) SARS-CoV-2 (PCR) (Not Detectd) 06/07/24 06/07/24 06/07/24 Range/Units 21:16 22:34 22:34 WBC (3.8-10.6) k/uL RBC (4.30-5.90) m/uL Hgb (13.0-17.5) gm/dL Hct (39.0-53.0) % MCV (80.0-100.0) fL MCH (25.0-35.0) pg MCHC (31.0-37.0) g/dL RDW (11.5-15.5) % Plt Count (150-450) k/uL MPV Neutrophils % % Lymphocytes % % Monocytes % % Eosinophils % % Basophils % % Neutrophils # (1.3-7.7) k/uL Lymphocytes # (1.0-4.8) k/uL Monocytes # (0-1.0) k/uL Eosinophils # (0-0.7) k/uL Basophils # (0-0.2) k/uL PT (10.0-12.5) sec INR (<1.2) APTT (22.0-30.0) sec D-Dimer (<0.60) mg/L FEU Sodium (137-145) mmol/L Potassium (3.5-5.1) mmol/L Chloride (98-107) mmol/L Carbon Dioxide (22-30) mmol/L Anion Gap mmol/L BUN (9-20) mg/dL Creatinine (0.66-1.25) mg/dL Est GFR (CKD-EPI)AfAm (>60 ml/min/1.73 sqM) Est GFR (CKD-EPI)NonAf (>60 ml/min/1.73 sqM) Glucose (74-99) mg/dL POC Glucose (mg/dL) (70-110) mg/dL POC Glu Pouncer ID Lactic Ac Sepsis Rflx Plasma Lactic Acid Jim (0.7-2.0) mmol/L Calcium (8.4-10.2) mg/dL Magnesium (1.6-2.3) mg/dL Total Bilirubin (0.2-1.3) mg/dL AST (17-59) U/L ALT (4-49) U/L Alkaline Phosphatase (38-126) U/L Creatine Kinase (55-170) U/L Troponin I 0.012 (0.000-0.034) ng/mL Total Protein (6.3-8.2) g/dL Albumin (3.5-5.0) g/dL Lipase (23-300) U/L Urine Color Light Yellow Urine Appearance Clear (Clear) Urine pH 6.0 (5.0-8.0) Ur Specific [place] 1.011 (1.001-1.035) Urine Protein Negative (Negative) Urine Glucose (UA) Negative (Negative) Urine Ketones Trace H (Negative) Urine Blood Trace H (Negative) Urine Nitrite Negative (Negative) Urine Bilirubin Negative (Negative) Urine Urobilinogen <2.0 (<2.0) mg/dL Ur Leukocyte Esterase Negative (Negative) Urine RBC 4 (0-5) /hpf Urine WBC <1 (0-5) /hpf Ur Squamous Epith Cells <1 (0-4) /hpf Amorphous Sediment Rare H (None) /hpf Hyaline Casts 11 H (0-2) /lpf Urine Mucus Rare H (None) /hpf Serum Alcohol <10 mg/dL Influenza Type A (PCR) (Not Detectd) Influenza Type B (PCR) (Not Detectd) RSV (PCR) (Not Detectd) SARS-CoV-2 (PCR) (Not Detectd) - Radiology Data Radiology results: report reviewed, image reviewed Disposition Clinical Impression: Failure to thrive, Weakness, Alcohol withdrawal Disposition: ADMITTED IP TO THIS [facility] Referrals: Alexis Lincoln MD [STAFF PHYSICIAN] - 1-2 days
[2024-06-07 20:05] LABS: Basophils % (A) 0 %; Eosinophils # (A) 0.1 k/uL (0-0.7); Eosinophils % (A) 1 %; HGB 14.1 gm/dL (13.0-17.5); Lymphocytes % (A) 9 %; MCH 31.2 pg (25.0-35.0); MCHC 33.5 g/dL (31.0-37.0); MCV 93.2 fL (80.0-100.0); Mean Platelet Volume 8.4; Monocytes # (A) 0.5 k/uL (0-1.0); Monocytes % (A) 4 %; Neutrophils # (A) 9.6 k/uL (1.3-7.7); Neutrophils % (A) 86 %; Platelet Count 124 k/uL (150-450); RDW 13.8 % (11.5-15.5); WBC 11.3 k/uL (3.8-10.6)
[2024-06-07] MEDS: MORPHINE SULFATE 4 MG/ML SYRINGE IVP STA (20:13)
[2024-06-07 20:14] LABS: Partial Thromboplastin Time 29.2 sec (22.0-30.0); Prothrombin Time 10.9 sec (10.0-12.5)
[2024-06-07] MEDS: SODIUM CHLORIDE 0.9% 1,000 ML IV ONE (20:14)
[2024-06-07 20:24] LABS: ALT 21 U/L (4-49); AST 39 U/L (17-59); African American GFR (CKD) >90 (>60 ml/min/1.73 sqM); Albumin 5.2 g/dL (3.5-5.0); Alkaline Phosphatase 165 U/L (38-126); Anion Gap 16 mmol/L; Blood Urea Nitrogen 13 mg/dL (9-20); Carbon Dioxide 23 mmol/L (22-30); Chloride 95 mmol/L (98-107); Creatine Kinase 120 U/L (55-170); Glucose 155 mg/dL (74-99); Magnesium 1.8 mg/dL (1.6-2.3); Non-African American GFR(CKD) >90 (>60 ml/min/1.73 sqM); Potassium 4.8 mmol/L (3.5-5.1); Sodium 134 mmol/L (137-145); Total Bilirubin 1.7 mg/dL (0.2-1.3)
--- NOTE | 2024-06-07 20:30 | XR ---
EXAMINATION TYPE: XR chest 2V DATE OF EXAM: 06/07/2024 8:24 PM COMPARISON: 11/26/2023 CLINICAL INDICATION: Male, 68 years old with history of Weakness: Shortness of breath TECHNIQUE: XR chest 2V views of the chest are obtained. FINDINGS: Scattered senescent parenchymal changes noted. Hyperinflation compatible with COPD. No evidence for infiltrate. No evidence for atelectasis. Heart size is stable. Mediastinal structures are stable and grossly unremarkable. No evidence for hilar prominence. Degenerative changes dorsal spine. IMPRESSION: 1. No evidence for acute pulmonary disease. [facility], , 06/07/2024 8:27 PM
--- NOTE | 2024-06-07 20:37 | XR ---
EXAMINATION TYPE: XR lumbar spine 2 or 3V DATE OF EXAM: 06/07/2024 8:29 PM COMPARISON: None. CLINICAL INDICATION: Male, 68 years old with history of Pain, TECHNIQUE: 3 views of the lumbar spine submitted. FINDINGS: Postoperative changes at the thoracolumbar junction extending from T11 through L3. There ar e 5 lumbar type vertebral bodies identified. The lumbar spine shows satisfactory alignment without e vidence of acute fracture or dislocation. Vertebral body heights are within normal limits. At least m oderate multilevel degenerative disc space narrowing. The overlying soft tissue appears unremarkable. IMPRESSION: No acute fracture or dislocation is seen in the lumbar spine.ICD 10 NO FRACTURE, INITIAL EVALUATION [facility], , 06/07/2024 8:35 PM
[2024-06-07 20:40] LABS: Influenza A Not Detected (Not Detectd); Influenza B Not Detected (Not Detectd); RSV Not Detected (Not Detectd)
[2024-06-07 21:35] LABS: Amorphous Sediment,Urine Rare /hpf; Appearance,Urine Clear (Clear); Bilirubin,Urine Negative (Negative); Blood,Urine Trace (Negative); Color,Urine Light Yellow; Glucose,Urine (UA) Negative (Negative); Hyaline Casts,Urine 11 /lpf (0-2); Ketones,Urine Trace (Negative); Leukocyte Esterase,Urine Negative (Negative); Mucus,Urine Rare /hpf; Nitrite,Urine Negative (Negative); Protein,Urine Negative (Negative); RBC,Urine 4 /hpf (0-5); Specific Gravity,Urine 1.011 (1.001-1.035); Squamous Epithelial Cell,Urine <1 /hpf (0-4); Urobilinogen,Urine <2.0 mg/dL (<2.0); WBC,Urine <1 /hpf (0-5)
[2024-06-07] MEDS ORDERED: LORazepam 1 MG TAB PO PRN (21:44)
[2024-06-07] MEDS ORDERED: LORazepam 2 MG/ML INJ IV PRN ×3 (21:44)
[2024-06-07] MEDS: THIAMINE 100 MG/ML 2 ML VIAL IM STA (23:05)
--- NOTE | 2024-06-07 23:34 | CT ---
EXAM: CT Angiography Chest With Intravenous Contrast CLINICAL HISTORY: ITS.REASON CT Reason: Back pain, tachycardia, elevated d-dimer TECHNIQUE: Axial computed tomographic angiography images of the chest with intravenous contrast. CTDI is 40.2 mGy and DLP is 332.5 mGy-cm. This CT exam was performed using one or more of the following dose reduction techniques: automated exposure control, adjustment of the mA and/or kV according to patient size, and/or use of iterative reconstruction technique. MIP reconstructed images were created and reviewed. COMPARISON: No relevant prior studies available. FINDINGS: Pulmonary arteries: Unremarkable. No pulmonary embolism. Aorta: Atherosclerotic changes of the aorta. No thoracic aortic aneurysm. Inferior vena cava: IVC filter. Lungs: Unremarkable. No mass. No consolidation. Pleural space: Unremarkable. No significant effusion. No pneumothorax. Heart: Unremarkable. No cardiomegaly. No significant pericardial effusion. No evidence of RV dysfunction. Bones/joints: Multilevel RIGHT lumbar fusion hardware. Degenerative changes of the spine. No acute fracture. No dislocation. Soft tissues: Unremarkable. Lymph nodes: Unremarkable. No enlarged lymph nodes. IMPRESSION: No pulmonary embolism.
[2024-06-07] MEDS ORDERED: ONDANSETRON 4 MG/2 ML VIAL IVP PRN (23:46)
[2024-06-07] MEDS ORDERED: ACETAMINOPHEN TAB 325 MG TAB PO PRN (23:46)
[2024-06-07] MEDS ORDERED: NALOXONE 0.4 MG/ML 1 ML VIAL IV PRN (23:46)
[2024-06-07] MEDS: LORazepam 2 MG/ML INJ IV PRN (23:59)
[2024-06-08] MEDS: SODIUM CHLORIDE 0.9% 1,000 ML IV ONE (01:32)
[2024-06-08] MEDS: HYDROcodone/APAP 5-325MG 1 EACH TAB PO PRN (01:36)
[2024-06-08] MEDS: SODIUM CHLORIDE 0.9% 1,000 ML IV SCH (02:30)
[2024-06-08 07:43] LABS: Glucose,Whole Blood 117 mg/dL (70-110)
[2024-06-08] MEDS ORDERED: LORazepam 1 MG/0.5 ML VIAL IV PRN ×3 (08:41→08:42)
[2024-06-08] MEDS ORDERED: DEXTROSE 50% SYRINGE 50 ML IVP PRN ×2 (10:17)
[2024-06-08] MEDS: PANTOPRAZOLE 40 MG/10 ML VIAL IV SCH (10:22)
[2024-06-08] MEDS: FOLIC ACID 1 MG TAB PO SCH (10:22)
[2024-06-08] MEDS: THIAMINE 100 MG TAB PO SCH (10:22)
[2024-06-08] MEDS: MULTIVITAMINS, THERA 1 EACH TAB PO SCH (10:22)
[2024-06-08 12:09] LABS: Glucose,Whole Blood 199 mg/dL (70-110)
[2024-06-08] MEDS: INSULIN LISPRO (HumaLOG) 100 UNIT/ML 10 mL VL SQ SCH (13:31)
[2024-06-08 14:09] VITALS: BMI 18.1
[2024-06-08 15:59] LABS: Basophils % (A) 0 %; Eosinophils # (A) 0.1 k/uL (0-0.7); Eosinophils % (A) 2 %; HCT 36.3 % (39.0-53.0); HGB 11.7 gm/dL (13.0-17.5); Hypochromasia Slight; Lymphocytes # (A) 0.8 k/uL (1.0-4.8); Lymphocytes % (A) 13 %; MCH 31.6 pg (25.0-35.0); MCHC 32.4 g/dL (31.0-37.0); MCV 97.5 fL (80.0-100.0); Mean Platelet Volume 8.6; Monocytes # (A) 0.3 k/uL (0-1.0); Monocytes % (A) 5 %; Neutrophils # (A) 4.8 k/uL (1.3-7.7); Neutrophils % (A) 78 %; RBC 3.72 m/uL (4.30-5.90); RDW 13.9 % (11.5-15.5); WBC 6.1 k/uL (3.8-10.6)
--- NOTE | 2024-06-08 16:06 | US ---
EXAMINATION TYPE: US venous doppler duplex LE BI DATE OF EXAM: 06/08/2024 3:58 PM Exam done portable COMPARISON: NONE CLINICAL INDICATION: Male, 68 years old with history of fall, difficulty in ambulating, leg pain; , P ain TECHNIQUE: The lower extremity deep venous system is examined utilizing real time linear array sonog vinh with graded compression, color doppler sonography, and spectral doppler. SIDE PERFORMED: Bilateral FINDINGS: VESSELS IMAGED: Common Femoral Vein Deep Femoral Vein Greater Saphenous Vein * Femoral Vein Popliteal Vein Small Saphenous Vein * Proximal Calf Veins (* superficial vessels) Right Leg: Appears negative for DVT Left Leg: Appears negative for DVT IMPRESSION: No ultrasound evidence for deep venous thrombosis. [facility], , 06/08/2024 4:04 PM
[2024-06-08] MEDS: ACAMPROSATE CALCIUM 333 MG TABLET.DR PO SCH (16:08)
[2024-06-08] MEDS: OXYBUTYNIN 10 MG TAB.ER.24 PO SCH (16:09)
[2024-06-08] MEDS: ZINC OXIDE PASTE (Z-GUARD) 1 APPLIC TOPICAL PRN (16:09)
[2024-06-08 16:29] LABS: ALT 17 U/L (4-49); AST 32 U/L (17-59); African American GFR (CKD) >90 (>60 ml/min/1.73 sqM); Albumin 3.5 g/dL (3.5-5.0); Albumin/Globulin Ratio 1.3; Alkaline Phosphatase 110 U/L (38-126); Anion Gap 10 mmol/L; Blood Urea Nitrogen 13 mg/dL (9-20); Calcium 8.7 mg/dL (8.4-10.2); Carbon Dioxide 20 mmol/L (22-30); Chloride 102 mmol/L (98-107); Globulin 2.8 g/dL; Glucose 228 mg/dL (74-99); Magnesium 1.7 mg/dL (1.6-2.3); Non-African American GFR(CKD) >90 (>60 ml/min/1.73 sqM); Potassium 3.8 mmol/L (3.5-5.1); Sodium 132 mmol/L (137-145); Total Protein 6.3 g/dL (6.3-8.2)
[2024-06-08] MEDS: NON FORMULARY DRUG (Tolterodine Er 4 MG Cap.Er.24h) PO SCH (16:31)
[2024-06-08 16:33] LABS: Platelet Count 59 k/uL (150-450)
[2024-06-08 17:29] LABS: Glucose,Whole Blood 249 mg/dL (70-110)
--- NOTE | 2024-06-08 17:44 | CT ---
EXAMINATION TYPE: CT brain wo con CT DLP: 1318 mGycm, Automated exposure control for dose reduction was used. DATE OF EXAM: 06/08/2024 5:30 PM COMPARISON: CT brain 11/26/2023 CLINICAL INDICATION:Male, 68 years old with history of fall, back pain, ams, weakness, ams, fall TECHNIQUE: Brain: Multiple axial CT images of the brain were obtained without IV contrast. . Coronal and sagitta l reformats reviewed. FINDINGS: Brain: Extra-axial spaces: No abnormal extra-axial fluid collections. Ventricular system: Dilatation in proportion to cerebral atrophy. Cerebral parenchyma: Cerebral atrophy. No acute intraparenchymal hemorrhage or mass effect. The calderon -white junction is well differentiated. Scattered hypoattenuating areas are seen within the periventr icular and subcortical white matter. Cerebellum: Unremarkable. Mass effect: No evidence of midline shift. Intracranial vasculature: Atherosclerotic calcifications of the intracranial vessels. Soft tissues: Normal. Calvarium/osseous structures: No depressed skull fracture. Paranasal sinuses and mastoid air cells: Mastoid air cells are clear. Moderate mucosal thickening of the right sphenoid sinus. The remaining paranasal sinuses are relatively clear. Visualized orbits: Orbital contents are intact. IMPRESSION: 1. No acute intracranial process. 2. Similar cerebral atrophy with nonspecific white matter changes, likely secondary to chronic small vessel ischemic disease. 3. Moderate right sphenoid sinus mucosal disease. [facility], , 06/08/2024 5:41 PM
--- NOTE | 2024-06-08 17:51 | CT ---
EXAMINATION TYPE: CT lumbar spine wo con CT DLP: 1014.9 mGycm, Automated exposure control for dose reduction was used. DATE OF EXAM: 06/08/2024 5:30 PM COMPARISON: Lumbosacral spine radiograph 06/07/2024. CLINICAL INDICATION:Male, 68 years old with history of fall, back pain; PHH, back pain from fall, delfina n TECHNIQUE: Multiple axial images were obtained from the midportion of T11 through the sacroiliac kuldip nts. Soft tissue and bone windows in coronal and sagittal planes were obtained and reviewed. Contrast used: none. Oral contrast used: none. FINDINGS: Alignment: There are 5 lumbar type vertebral bodies within normal alignment. Bone: Diffuse bone demineralization was limited evaluation. Incidental limbus vertebrae involving th e L4 vertebral body anterosuperiorly. Postsurgical changes with bilateral pedicle screws and rods inv olving T11-L3. Hardware appears intact with appropriate alignment. No evidence of acute fracture iden tified. Mild concavity to the superior endplate of the T12 vertebral body. Multiple healed right T10 rib fracture. Both SI joints appear intact. Discs: Multilevel disc space narrowing with endplate sclerosis and vacuum disc disease. T10-T11: No significant central canal or neural foraminal stenosis. T11-T12: No significant central canal or neural foraminal stenosis. T12-L1: No significant central canal or neural foraminal stenosis. L1-L2: No significant central canal or neural foraminal stenosis. L2-L3: No significant central canal or neural foraminal stenosis. L3-L4: Broad-based disc bulge with ligamentum flavum buckling and bilateral facet arthropathy contrib elim ira to moderate central canal stenosis. Moderate bilateral neural foraminal stenosis. L4-L5: Broad-based disc bulge with mild effacement of the anterior thecal sac. Mild central canal atif nosis. Bilateral facet arthropathy with mild bilateral neural foraminal stenosis. L5-S1: Broad-based disc bulge with mild effacement of the anterior thecal sac. Mild central canal atif nosis. Bilateral facet arthropathy with moderate bilateral neural foraminal stenosis. Other: Small hiatal hernia. Trace right pleural effusion with associated atelectasis. Moderate athero sclerotic calcification of the aorta and its branches. IVC filter demonstrated. IMPRESSION: 1. Diffuse bony demineralization with old evaluation. No definitive CT evidence for acute spinal frac ture. 2. Postsurgical changes from posterior fusion T11-L3. Hardware appears intact. 3. Moderate multilevel degenerative disc disease and facet arthropathy as described above. 4. Trace right pleural effusion with associated atelectasis. [facility], , 06/08/2024 5:49 PM
[2024-06-08] MEDS: NYSTATIN 100,000 UNIT/GM POWD 15 GM TOPICAL SCH (18:23)
[2024-06-08] MEDS: ATORVASTATIN 10 MG TAB PO SCH (20:28)
[2024-06-08 20:30] LABS: Glucose,Whole Blood 225 mg/dL (70-110)
[2024-06-08] MEDS: MIRTAZAPINE 15 MG TAB PO SCH (21:52)
[2024-06-08] MEDS: KETOROLAC 15 MG/ML 1 ML VIAL IVP PRN (22:00)
[2024-06-08] MEDS: MORPHINE SULFATE 4 MG/ML SYRINGE IV PRN (22:42)
--- NOTE | 2024-06-09 00:39 | HP ---
HISTORY AND PHYSICAL CHIEF COMPLAINT: Weakness as well as fall and history of EtOH. HISTORY OF PRESENT ILLNESS: This 68-year-old gentleman with a past medical history of multiple medical problems including EtOH, recently in the rehab. The patient went home and the patient apparently fell, unable to get up and the family found that the house was covered with feces and with empty alcohol cans. The patient was taken to [place] for evaluation. There is no history of fever, rigors, or chills. PAST MEDICAL HISTORY: Reviewed include diabetes mellitus. Rest of the history and rest of the chart is also reviewed. HOME MEDICATIONS: Reviewed include Protonix. Dose and rest of medication reviewed. ALLERGIES: Tetracycline. FAMILY HISTORY: No history of heart disease or strokes. SOCIAL HISTORY: As mentioned earlier. REVIEW OF SYSTEMS: A 14-point review is negative. PHYSICAL EXAMINATION: VITAL SIGNS: Pulse is 83, blood pressure 157/72, and respirations 17. HEENT: Conjunctivae normal. NECK: No JVD. CARDIOVASCULAR: S1, S2. RESPIRATIONS: Breath sounds diminished at the bases. A few scattered rhonchi and crackles. ABDOMEN: Soft and nontender. NERVOUS SYSTEM: Nonfocal. LABORATORY DATA: WBC 10.3. D-dimer is 14.75. Lactic acid 2.1. ASSESSMENT: 1. Weakness and fall and gait dysfunction for evaluation. 2. History of EtOH. 3. Elevated D-dimer without any evidence of pulmonary embolism. 4. Elevated WBC. 5. Severe back pain. 6. Thrombocytopenia. 7. Hyponatremia. 8. Diabetes mellitus, type 2. 9. History of degenerative joint disease. RECOMMENDATIONS AND DISCUSSION: This 68-year-old gentleman, who presented with multiple complex medical issues. At this time, I would recommend continue the symptomatic treatment. I would recommend pain management. CT scan of the back. PT/OT evaluation. ECF rehab. 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 Ativan protocol. Prognosis guarded because of multiple complex medical issues. Further recommendations to follow. See orders for details. MMODL / IJN: [id number] /
[2024-06-09] MEDS: HYDROcodone/APAP 10-325MG 1 EACH TAB PO PRN (02:43)
[2024-06-09 07:41] LABS: Glucose,Whole Blood 248 mg/dL (70-110)
[2024-06-09] MEDS: PANTOPRAZOLE 40 MG TABLET PO SCH (07:51)
[2024-06-09 10:17] LABS: ALT 18 U/L (10-49); AST 26 U/L (14-35); Albumin 3.7 g/dL (3.8-4.9); Albumin/Globulin Ratio 1.48 Ratio (1.60-3.17); Alkaline Phosphatase 127 U/L (41-126); Blood Urea Nitrogen 14.1 mg/dL (9.0-27.0); Calcium 8.5 mg/dL (8.7-10.3); Carbon Dioxide 23.8 mmol/L (21.6-31.8); Chloride 103 mmol/L (96-109); Globulin 2.5 g/dL (1.6-3.3); Glucose 192 mg/dL (70-110); Magnesium 1.6 mg/dL (1.5-2.4); Potassium 3.8 mmol/L (3.5-5.5); Sodium 136 mmol/L (135-145); Total Bilirubin 0.5 mg/dL (0.3-1.2); Total Protein 6.2 g/dL (6.2-8.2)
[2024-06-09 11:08] LABS: Basophils # (A) 0.03 X 10*3/uL (0.00-0.10); Basophils % (A) 0.5 %; Eosinophils # (A) 0.12 X 10*3/uL (0.04-0.35); HCT 33.6 % (39.6-50.0); HGB 11.1 g/dL (13.0-17.0); Immature Platelet Fraction 7.1 % (1.1-6.1); Lymphocytes # (A) 1.17 X 10*3/uL (0.90-5.00); Lymphocytes % (A) 19.3 %; MCH 31.4 pg (27.0-32.0); MCV 95.2 FL (80.0-97.0); Mean Platelet Volume 11.4 FL (9.5-12.2); Monocytes # (A) 0.49 X 10*3/uL (0.20-1.00); Monocytes % (A) 8.1 %; NRBC Per 100 WBC 0 X 10*3/uL (0.00-0.01); Neutrophils # (A) 4.23 X 10*3/uL (1.80-7.70); Neutrophils % (A) 69.6 %; Platelet Count 65 X 10*3/uL (140-440); RBC 3.53 X 10*6/uL (4.40-5.60); RDW 13.9 % (11.5-14.5); WBC 6.07 X 10*3/uL (4.50-10.00)
[2024-06-09 12:53] LABS: Glucose,Whole Blood 320 mg/dL (70-110)
--- NOTE | 2024-06-09 16:28 | XR ---
EXAMINATION TYPE: XR shoulder complete RT DATE OF EXAM: 06/09/2024 4:13 PM COMPARISON: None. CLINICAL INDICATION: Male, 68 years old with history of pain, pain TECHNIQUE: XR shoulder complete RT views were obtained FINDINGS: Humeral neck fracture with impaction at the humeral head. There appears to be callus formation and th erefore this fracture is likely nonacute in nature however clinical correlation is advised. The acrom ioclavicular and glenohumeral joint spaces appear narrowed. The visualized ribs are intact and unrem arkable. IMPRESSION: Humeral neck fracture with impaction at the humeral head. There appears to be callus formation and th erefore this fracture is likely nonacute in nature however clinical correlation is advised. [facility], , 06/09/2024 4:26 PM
[2024-06-09] MEDS: HYDROmorphone 0.5 MG/0.5 ML SYRINGE IVP PRN (16:44)
[2024-06-09 17:47] LABS: Glucose,Whole Blood 178 mg/dL (70-110)
--- NOTE | 2024-06-09 19:39 | PN ---
PROGRESS NOTE DATE OF SERVICE: 06/09/2024 SUBJECTIVE: This 68-year-old gentleman admitted with weakness and fall, also is complaining of low back pain and gait dysfunction. The patient also had multiple CAT scan showed diffuse slightly disk bulging also. The patient is also complaining of left shoulder pain also at this time. PAST MEDICAL HISTORY: Reviewed. REVIEW OF SYSTEMS: Fourteen-point review of systems is negative except as mentioned earlier. CURRENT MEDICATIONS: Reviewed. PHYSICAL EXAMINATION: VITAL SIGNS: Pulse is 83, blood pressure 130/70, respirations 17. CHEST: Clear to auscultation. CARDIOVASCULAR: S1, S2. ABDOMEN: Soft. EXTREMITIES: Movement of the legs are painful. LABORATORY DATA: Noted. 1. Weakness and fall and gait dysfunction. 2. Severe degenerative joint disease. 3. EtOH. 4. Elevated D-dimer without any evidence of pulmonary embolism. 5. Right shoulder pain. 6. Elevated WBC. 7. Thrombocytopenia. 8. Multiple complex medical issues. RECOMMENDATIONS: Recommend to continue current medications and continue symptomatic treatment. Otherwise, I would also recommend orthopedic evaluation. Monitor blood sugars closely. Resume the home medications once they are confirmed. The blood sugars are presently elevated. I would recommend hemoglobin A1c and also start Lantus also. MMODL / IJN: [id number] /
[2024-06-09 20:08] LABS: Glucose,Whole Blood 213 mg/dL (70-110)
[2024-06-10 07:05] LABS: Glucose,Whole Blood 254 mg/dL (70-110)
[2024-06-10] MEDS: LORazepam 1 MG/0.5 ML VIAL IV PRN (07:54)
[2024-06-10 09:28] LABS: Basophils # (A) 0.03 X 10*3/uL (0.00-0.10); Basophils % (A) 0.4 %; Eosinophils # (A) 0.17 X 10*3/uL (0.04-0.35); Eosinophils % (A) 2.2 %; HCT 34.1 % (39.6-50.0); HGB 11.7 g/dL (13.0-17.0); Immature Platelet Fraction 6.6 % (1.1-6.1); Lymphocytes # (A) 1.09 X 10*3/uL (0.90-5.00); Lymphocytes % (A) 14.1 %; MCH 32.1 pg (27.0-32.0); MCHC 34.3 g/dL (32.0-37.0); MCV 93.7 FL (80.0-97.0); Mean Platelet Volume 12.4 FL (9.5-12.2); Monocytes % (A) 9.1 %; NRBC Per 100 WBC 0 X 10*3/uL (0.00-0.01); Neutrophils % (A) 73.8 %; Platelet Count 76 X 10*3/uL (140-440); RBC 3.64 X 10*6/uL (4.40-5.60); RDW 13.5 % (11.5-14.5); WBC 7.72 X 10*3/uL (4.50-10.00)
[2024-06-10 09:42] LABS: Blood Urea Nitrogen 10.5 mg/dL (9.0-27.0); Carbon Dioxide 24.9 mmol/L (21.6-31.8); Chloride 101 mmol/L (96-109); Glucose 163 mg/dL (70-110); Potassium 3.7 mmol/L (3.5-5.5); Sodium 138 mmol/L (135-145)
[2024-06-10 12:08] LABS: Glucose,Whole Blood 273 mg/dL (70-110)
--- NOTE | 2024-06-10 12:54 | P.CNOR ---
History of Present Illness - [facility] Consult date: 06/10/24 Consult reason: low back pain History of present illness: Patient is a 68-year-old male who was admitted to [facility] few days ago due to weakness, inability to the care of himself, recent fall, low back pain. Patient was admitted under internal medicine at that time. Patient underwent multiple imaging and lab test. Our orthopedic team was consulted due to the low back pain and findings that were done on x-ray and CT scan. Patient was evaluated today at bedside, achieving any kind of history or review of systems was very difficult. Patient seemed to answer all my questions accurately but was very vague in answering. He states he has chronic back pain. Patient states he cannot remember when he had his surgery done or the surgeon that did it. Patient does live alone. States he sometimes uses a walker and cane sometimes not. Feels that he has been getting weaker by the day. Denies any bowel or bladder dysfunction at this time. Admits to paresthesias in the lower extremities on occasion. Will attempt to reach out to family to discuss in further detail. Review of Systems Constitutional: Reports as per [facility] Past Medical History Past Medical History: Diabetes Mellitus History of Any Multi-Drug Resistant Organisms: None Reported Past Surgical History: Back Surgery, Orthopedic Surgery Additional Past Surgical History / Comment(s): 3 knee surgeries, neck surgery Past Anesthesia/Blood Transfusion Reactions: No Reported Reaction Past Psychological History: No Psychological Hx Reported Smoking Status: Never smoker Past Alcohol Use History: None Reported Past Drug Use History: None Reported Medications and Allergies Home Medications Medication Instructions Recorded Confirmed Type Tolterodine ER [Detrol LA] 4 mg PO DAILY 11/26/23 06/07/24 History Mirtazapine [Remeron] 15 mg PO HS #10 tab 12/06/23 06/07/24 Rx Acamprosate Calcium [Campral] 333 mg PO TID 06/07/24 06/07/24 History HYDROcodone/APAP 10-325MG [Climax 1 tab PO Q6H PRN 06/07/24 06/07/24 History 10-325] Oxybutynin Chloride [oxyBUTYnin 10 mg PO DAILY 06/07/24 06/07/24 History chloride ER] Pantoprazole [Protonix] 40 mg PO DAILY 06/07/24 06/07/24 History Simvastatin [Zocor] 20 mg PO HS 06/07/24 06/07/24 History lisinopriL 40 mg PO DAILY 06/07/24 06/07/24 History metFORMIN HCL 500 mg PO TID 06/07/24 06/07/24 History Allergies Allergy/AdvReac Type Severity Reaction Status Date / Time tetracycline Allergy Unknown Verified 06/07/24 20:39 Physical Examination Gen: AOx3, NAD VSS stable at this time Integument: Well-healed incision to the lower thoracic and lumbar region, no open lesions, areas of erythema or fluctuance Palpation: Mild tenderness with palpation throughout the lower thoracic and lumbar area paraspinal region ROM: Full range of motion of the left upper extremity, no focal deficits. Range of motion intact in the right upper extremity, he is limited with full abduction and forward elevation of the shoulder Range of motion of the bilateral lower extremities are intact, he demonstrates slight difficulty with hip flexion more on the right than left. No obvious foca l deficits appreciated Sensory Exam: Senory exam to light touch is intact C5-T1 Senosry exam to light touch is intact L2-S1 Motor: 4/5 strength appreciate the bilateral upper extremities with shoulder elevation, shoulder abduction, elbow extension, elbow flexion, wrist extension, wrist flexion, language tutor 4-/5 strength appreciated in the right lower extremity with hip flexion, knee extension, knee flexion 4/5 strength appreciated in the right lower extremity with plantarflexion, dorsiflexion, EHL, FHL 4/5 strength appreciated in the left lower extremity with hip flexion, knee extension, knee flexion, plantarflexion, dorsiflexion, EHL, FHL Reflexes: 2/4 in all UE and LE Negative clonus bilaterally Negative Mark's bilaterally Special Test: Logroll maneuver of the bilateral lower extremities reproduces no groin pain Negative straight leg raise bilaterally Results - Labs Labs: Abnormal Lab Results - Last 24 Hours (Table) 06/09/24 06/09/24 06/09/24 Range/Units 12:31 17:27 20:07 RBC (4.40-5.60) X 10*6/uL Hgb (13.0-17.0) g/dL Hct (39.6-50.0) % MCH (27.0-32.0) pg Plt Count (140-440) X 10*3/uL MPV (9.5-12.2) FL Immature Plt Fraction (1.1-6.1) % Anion Gap (4.00-12.00) mmol/L Creatinine (0.6-1.5) mg/dL BUN/Creatinine Ratio (12.00-20.00) Ratio Glucose (70-110) mg/dL POC Glucose (mg/dL) 320 H 178 H 213 H (70-110) mg/dL 06/10/24 06/10/24 06/10/24 Range/Units 04:29 04:29 07:04 RBC 3.64 L (4.40-5.60) X 10*6/uL Hgb 11.7 L (13.0-17.0) g/dL Hct 34.1 L (39.6-50.0) % MCH 32.1 H (27.0-32.0) pg Plt Count 76 L (140-440) X 10*3/uL MPV 12.4 H (9.5-12.2) FL Immature Plt Fraction 6.6 H (1.1-6.1) % Anion Gap 12.10 H (4.00-12.00) mmol/L Creatinine 0.5 L (0.6-1.5) mg/dL BUN/Creatinine Ratio 21.00 H (12.00-20.00) Ratio Glucose 163 H (70-110) mg/dL POC Glucose (mg/dL) 254 H (70-110) mg/dL 06/10/24 Range/Units 12:07 RBC (4.40-5.60) X 10*6/uL Hgb (13.0-17.0) g/dL Hct (39.6-50.0) % MCH (27.0-32.0) pg Plt Count (140-440) X 10*3/uL MPV (9.5-12.2) FL Immature Plt Fraction (1.1-6.1) % Anion Gap (4.00-12.00) mmol/L Creatinine (0.6-1.5) mg/dL BUN/Creatinine Ratio (12.00-20.00) Ratio Glucose (70-110) mg/dL POC Glucose (mg/dL) 273 H (70-110) mg/dL H & H 03/20/25 03/21/25 03/22/25 Range/Units 20:00 15:45 05:26 Hgb 14.1 11.7 L 11.1 L (13.0-17.5) gm/dL Hct 42.0 36.3 L 33.6 L (39.0-53.0) % 06/10/24 Range/Units 04:29 Hgb 11.7 L (13.0-17.5) gm/dL Hct 34.1 L (39.0-53.0) % Coagulation 06/07/24 Range/Units 20:00 INR 1.0 (<1.2) Result Diagrams: 06/10/24 04:29 06/10/24 04:29 - Diagnostic results Shoulder x-ray: report reviewed, image reviewed (X-rays reviewed of the right shoulder, previous proximal humerus fracture noted, callus bone is noted throughout fracture site) CT Scan - lumbar: report reviewed, image reviewed (Images and reports were reviewed of the lumbar spine CT, no acute fractures or dislocations. Hardware noted from T11 down to L3, all appear stable with no obvious lucencies. Patient has significant degenerative changes throughout the L3-L4, L4-L5 and L5-S1 region) Assessment and Plan Assessment: Weakness/debility History of recent fall Acute on chronic back pain Previous T11-L3 lumbar fusion Adjacent segment disease L3-L4, L4-L5, L5-S1 Multilevel lumbar spondylosis Previous left proximal humerus fracture, stable Other medical comorbidities Plan: I was able to discuss the case, this to include physical exam findings and imaging studies my attending surgeon, no emergent orthopedic spine surgery recommended Medically this patient seems very debilitated, like stated in previous section will try to reach out to family to achieve a better history on patient Recommend PT/OT Weight-bear as tolerated with walker Consultation for dietitian recommended GI and DVT prophylaxis per primary medical service Pain control, recommend resuming his normally prescribed pain medication Other medical specialty recommendations Will follow patient during hospital stay Time with Patient: Less than 30
[2024-06-10 17:16] LABS: Glucose,Whole Blood 312 mg/dL (70-110)
[2024-06-10 20:09] LABS: Glucose,Whole Blood 182 mg/dL (70-110)
--- NOTE | 2024-06-10 22:38 | PN ---
PROGRESS NOTE DATE OF SERVICE: 06/10/2024 SUBJECTIVE: This 68-year-old gentleman admitted with weakness and fall, has significant EtOH issues also. The patient was found to have right humerus fracture in the x-rays. The patient is complaining of severe pain in that region. The patient had multiple DJD also. PAST MEDICAL HISTORY: Reviewed. REVIEW OF SYSTEMS: Fourteen-point review of systems is negative except as mentioned earlier. CURRENT MEDICATIONS: Reviewed. PHYSICAL EXAM: VITAL SIGNS: Pulse is 93, blood pressure 149/80, respirations 18. CHEST: Few scattered rhonchi and crackles. ABDOMEN: Soft. NERVOUS SYSTEM: No focal deficit. EXTREMITIES: Movement of the right shoulder painful and limited. ASSESSMENT: 1. Weakness and fall and gait dysfunction. 2. Right humerus fracture, possibly old per Ortho. 3. Severe degenerative joint disease. 4. ETOH. 5. Elevated D-dimer without any evidence of pulmonary embolus. 6. Right shoulder pain. 7. Elevated WBC. 8. Thrombocytopenia. 9. Multiple complex medication. RECOMMENDATION: Recommend to continue current medications and continue symptomatic treatment. Otherwise PT, OT evaluation, pain management. Overall prognosis guarded because of multiple complex medical conditions. Further recommendations to follow. MMODL / IJN: [id number] /
[2024-06-11 07:17] LABS: Glucose,Whole Blood 278 mg/dL (70-110)
[2024-06-11 12:22] LABS: Glucose,Whole Blood 325 mg/dL (70-110)
--- NOTE | 2024-06-11 13:41 | P.CONS ---
History of Present Illness - Reason for Consult Consult date: 06/11/24 rehab recommendations - Chief Complaint debility - History of Present Illness Mr Ross is a 68 y/o male who lives alone in a senior apartment, no RICH. Prior to admission patient was able to ambulate with and without a walker, generally using the walker outside. Patient has a daughter, but she does not live nearby, can only help minimally. Patient presented to the ED with complaints of weakness and back pain. He fell back into a chair and was unable to get up due to back pain and positioning. He reports he was in the chair for over a day, EMS was called. He did not eat for several days. Per records, patients daughter found the house covered in feces and empty alcohol cans. She had found his medication in the oven and it appears he was not taking it. His daughter has concerns about his ability to live safely alone. He was admitted with failure to thrive. Orthopedics consulted for back pain. He has multilevel lumbar spondylosis. PM&R consulted for rehab recommendations. Patient seen by therapies needing mod- max assist and unable to ambulate. He notes he has "pain everywhere", especially with coughing or sneezing; non-specific. Does have chronic LBP and takes Belfair. Denies SCOTT, CP, SOB, abdominal pain. Review of Systems reviewed, negative unless stated in HPI Past Medical History Past Medical History: Diabetes Mellitus History of Any Multi-Drug Resistant Organisms: None Reported Past Surgical History: Back Surgery, Orthopedic Surgery Additional Past Surgical History / Comment(s): 3 knee surgeries, neck surgery Past Anesthesia/Blood Transfusion Reactions: No Reported Reaction Past Psychological History: No Psychological Hx Reported Smoking Status: Never smoker Past Alcohol Use History: None Reported Past Drug Use History: None Reported Medications and Allergies Home Medications Medication Instructions Recorded Confirmed Type Tolterodine ER [Detrol LA] 4 mg PO DAILY 11/26/23 06/07/24 History Mirtazapine [Remeron] 15 mg PO HS #10 tab 12/06/23 06/07/24 Rx Acamprosate Calcium [Campral] 333 mg PO TID 06/07/24 06/07/24 History HYDROcodone/APAP 10-325MG [Belfair 1 tab PO Q6H PRN 06/07/24 06/07/24 History 10-325] Oxybutynin Chloride [oxyBUTYnin 10 mg PO DAILY 06/07/24 06/07/24 History chloride ER] Pantoprazole [Protonix] 40 mg PO DAILY 06/07/24 06/07/24 History Simvastatin [Zocor] 20 mg PO HS 06/07/24 06/07/24 History lisinopriL 40 mg PO DAILY 06/07/24 06/07/24 History metFORMIN HCL 500 mg PO TID 06/07/24 06/07/24 History Allergies Allergy/AdvReac Type Severity Reaction Status Date / Time tetracycline Allergy Unknown Verified 06/07/24 20:39 Physical Exam Vitals: Vital Signs Temp Pulse Resp BP Pulse Ox 06/11/24 12:42 92.8 F L 88 18 118/73 96 06/11/24 07:41 98.3 F 86 17 146/80 96 06/11/24 00:46 98.2 F 87 16 118/65 97 06/10/24 19:03 98.5 F 105 H 17 147/85 95 06/10/24 14:00 98 F 75 18 140/84 97 Intake and Output 06/10/24 06/11/24 06/11/24 22:59 06:59 14:59 Intake Total 200 Output Total 401 125 250 Balance -201 -125 -250 Intake: Oral 200 Output: Urine 400 125 250 Stool 1 Other: Voiding Method Urinal Urinal Diaper Diaper # Voids 3 General: alert, NAD HEENT: head normocephalic, atraumatic; moist mucous membranes, external ears intact with hearing intact to conversational speech Neck: supple CV: Regular rate Lungs: non-labored respirations Abdomen: soft, NT, ND MSK: full ROM bilateral UE and LEs MMT: ~ 5/5 bilateral UE/LE Neuro: MSR: 2/4 bilateral biceps, triceps, brachioradialis, patella, Achilles CN 2-12 grossly intact Sensation intact to light touch bilateral UE and LEs Coordination: FTN and HTS WFL bilaterally Psych: mood calm, affect appropriate, A&O x 4 Extremities: calves supple, non tender, no edema Skin: intact where exposed Results CBC & Chem 7: 06/10/24 04:29 06/10/24 04:29 Labs: Abnormal Lab Results - Last 24 Hours (Table) 06/10/24 06/10/24 06/11/24 Range/Units 17:15 20:08 07:06 POC Glucose (mg/dL) 312 H 182 H 278 H (70-110) mg/dL 06/11/24 Range/Units 12:20 POC Glucose (mg/dL) 325 H (70-110) mg/dL Assessment and Plan Assessment: #Failure to thrive -therapies, per notes patient's daughter has concern for him living alone. #Inability to care for self #Alcohol withdrawal #Back pain, acute on chronic -history of back surgery #multilevel lumbar spondylosis #Diabetes Mellitus #Pain Management -Tylenol pen, Belfair 5/325 mg Q 4 hrs prn, Belfair 10/325 mg Q 6 hrs prn, Dilaudid prn #Your medical dx and management Dispo: Patient is more appropriate for [facility] for rehab. He is limited in his functional ability and it appears he is having trouble caring for himself at home. Recommend SW consult. Patient seen and examined by Dr Bowen, note prepped by Desiree Martin PA-C
--- NOTE | 2024-06-11 14:03 | P.PN ---
Subjective Progress Note Date: 06/11/24 Principal diagnosis: Chronic low back pain, history of previous lumbar surgery, severe lumbar spondylosis with varying degrees of central canal and neuroforaminal stenosis Patient was evaluated today at bedside, he is resting in his hospital bed. Patient's symptoms remained about the same. I did spend some time on the phone today discussing with the patient's daughter his general health and medical issues over the last year or 2. She states that over the last year or so his general health is significantly declined. Patient seems to be in and out of multiple hospitals after falling at home and not being able to take care of himself. Objective - Vital Signs Vital signs: Vital Signs Temp 92.8 F L 06/11/24 12:42 Pulse 88 06/11/24 12:42 Resp 18 06/11/24 12:42 BP 118/73 06/11/24 12:42 Pulse Ox 96 06/11/24 12:42 FiO2 Intake & Output 06/10/24 06/11/24 06/11/24 18:59 06:59 18:59 Intake Total 200 Output Total 1 525 250 Balance -1 -325 -250 Intake: Oral 200 Output: Urine 525 250 Stool 1 Other: Voiding Method Urinal Urinal Urinal Diaper Diaper Diaper Incontinent # Voids 3 - Exam Gen: AOx3, NAD VSS stable at this time Integument: Well-healed incision to the lower thoracic and lumbar region, no open lesions, areas of erythema or fluctuance Palpation: Mild tenderness with palpation throughout the lower thoracic and lumbar area paraspinal region ROM: Full range of motion of the left upper extremity, no focal deficits. Range of motion intact in the right upper extremity, he is limited with full abduction and forward elevation of the shoulder Range of motion of the bilateral lower extremities are intact, he demonstrates slight difficulty with hip flexion more on the right than left. No obvious focal deficits appreciated Sensory Exam: Senory exam to light touch is intact C5-T1 Senosry exam to light touch is intact L2-S1 Motor: 4/5 strength appreciate the bilateral upper extremities with shoulder elevation, shoulder abduction, elbow extension, elbow flexion, wrist extension, wrist flexion, heel former 4-/5 strength appreciated in the right lower extremity with hip flexion, knee extension, knee flexion 4/5 strength appreciated in the right lower extremity with plantarflexion, dorsiflexion, EHL, FHL 4/5 strength appreciated in the left lower extremity with hip flexion, knee extension, knee flexion, plantarflexion, dorsiflexion, EHL, FHL Reflexes: 2/4 in all UE and LE Negative clonus bilaterally Negative Mark's bilaterally Special Test: Logroll maneuver of the bilateral lower extremities reproduces no groin pain Negative straight leg raise bilaterally - Labs CBC & Chem 7: 06/10/24 04:29 06/10/24 04:29 Labs: Abnormal Lab Results - Last 24 Hours (Table) 06/10/24 06/10/24 06/11/24 Range/Units 17:15 20:08 07:06 POC Glucose (mg/dL) 312 H 182 H 278 H (70-110) mg/dL 06/11/24 Range/Units 12:20 POC Glucose (mg/dL) 325 H (70-110) mg/dL Assessment and Plan Assessment: Weakness/debility History of recent fall Acute on chronic back pain Previous T11-L3 lumbar fusion Adjacent segment disease L3-L4, L4-L5, L5-S1 Multilevel lumbar spondylosis Previous left proximal humerus fracture, stable Other medical comorbidities Plan: Continue conservative measures, no emergent orthopedic spine surgery recommended Recommend PT/OT Weight-bear as tolerated with walker Consultation for dietitian recommended GI and DVT prophylaxis per primary medical service Pain control, recommend resuming his normally prescribed pain medication Other medical specialty recommendations Recommending subacute rehab versus permanent assisted living due to patient's medical state. Please contact our service with any further questions regarding this patient. Time with Patient: Less than 30
[2024-06-11 17:27] LABS: Glucose,Whole Blood 233 mg/dL (70-110)
[2024-06-11 20:10] LABS: Glucose,Whole Blood 235 mg/dL (70-110)
[2024-06-11] MEDS: LACTULOSE 20 GM/30 ML CUP PO PRN (20:48)
[2024-06-11] MEDS: SENNOSIDES 8.6 MG TAB PO SCH (20:48)
--- NOTE | 2024-06-12 06:02 | P.PN ---
Subjective Progress Note Date: 06/11/24 This is a 68-year-old male who was recently admitted with weakness and falls had significant EtOH issues with ongoing continued abuse found to have a right humerus fracture and the x-rays and patient is complaining of pain in the area with orthopedics following. Patient with significant DJD as well. Patient with generalized weakness being evaluated by physical therapy recommending rehab and family is also extremely concerned as he is not able to care for himself as the home was noted to be extremely unkept with feces noted throughout the house. Management/social work is following and recommending IPR consult although does not appear appropriate and would benefit from ECF. Patient is afebrile with no reports of chest pain or shortness of breath. Review of systems: Constitutional: No reports of fatigue, fever, or chills Cardiovascular: No reports of chest pain or palpitations Respiratory: No reports of shortness of breath or cough GI: No reports of nausea, no reports of vomiting, reports has not had a bowel movement in a few days : No reports of dysuria or retention Neurovascular: reports of generalized weakness, right arm pain as well as significant back pain which she reports is chronic All medications have been reviewed PHYSICAL EXAMINATION: GENERAL: The patient is alert and oriented x2, baseline well developed, elderly appearing, thin built, cachectic HEENT: Pupils are round and equally reacting to light. EOMI. no scleral icterus. No conjunctival pallor. Normocephalic, atraumatic. No pharyngeal erythema. No thyromegaly. CARDIOVASCULAR: S1 and S2 muffled PULMONARY: diminished breath sounds bilaterally with no wheezing or rhonchi noted. ABDOMEN: soft. Nontender on exam. Thin, scaphoid non-distended, normoactive bowel sounds. No palpable organomegaly. MUSCULOSKELETAL: No joint swelling or deformity. EXTREMITIES: No cyanosis, clubbing, or pedal edema. Generalized weakness in lower extremities NEUROLOGICAL: Gross neurological examination did not reveal any focal deficits. Diffuse weakness SKIN: No rashes. Assessment: Weakness and fall with gait dysfunction Right humerus fracture, likely old per orthopedics Severe degenerative joint disease Continued ongoing EtOH abuse with concerns of acute alcohol withdrawal on admission Elevated D-dimer without any evidence of PE on imaging Right shoulder pain GI prophylaxis DVT prophylaxis Full code Plan: Recommend to continue with current medications and management per orthopedic services. No plans of surgical intervention at this time recommending conservative management and continued PT/OT therapy Social work following working on discharge planning to possible ECF. Inpatient rehab although patient does not appear to be a candidate for this recommending ECF. Referrals to be sent and patient will also require insurance authorization. Upon repeat labs and replace electrolytes per protocol Encouraged increase activity as tolerated with sitting up out of bed more frequently Continue conservative management right upper extremity Patient reports has not had a bowel movement in a few days and will add as needed bowel regimen Will discuss further with social work regarding discharge planning Due to multiple complex medical issues, overall prognosis is guarded The impression and plan of care has been dictated by Nicole Dougherty, nurse practitioner as directed. Dr. Luz MD I have performed a history and examination and MDM of this patient, discussed the same with the dictator, and agree with the dictator's assessment and plan as written ,documented as a scribe. Based on total visit time, I have performed more than 50% of the visit. Any additional findings or plans will be noted. Objective - Vital Signs Vital signs: Vital Signs Temp 98.3 F 06/11/24 07:41 Pulse 86 06/11/24 07:41 Resp 17 06/11/24 07:41 BP 146/80 06/11/24 07:41 Pulse Ox 96 06/11/24 07:41 FiO2 Intake & Output 06/10/24 06/11/24 06/11/24 18:59 06:59 18:59 Intake Total 200 Output Total 1 525 250 Balance -1 -325 -250 Intake: Oral 200 Output: Urine 525 250 Stool 1 Other: Voiding Method Urinal Urinal Diaper Diaper Incontinent # Voids 3 - Labs CBC & Chem 7: 06/10/24 04:29 06/10/24 04:29 Labs: Abnormal Lab Results - Last 24 Hours (Table) 06/10/24 06/10/24 06/10/24 Range/Units 12:07 17:15 20:08 POC Glucose (mg/dL) 273 H 312 H 182 H (70-110) mg/dL 06/11/24 Range/Units 07:06 POC Glucose (mg/dL) 278 H (70-110) mg/dL
[2024-06-12 06:47] LABS: Glucose,Whole Blood 153 mg/dL (70-110)
[2024-06-12 07:22] LABS: Glucose,Whole Blood 156 mg/dL (70-110)
[2024-06-12 08:20] LABS: Basophils # (A) 0.03 X 10*3/uL (0.00-0.10); Basophils % (A) 0.5 %; Eosinophils # (A) 0.23 X 10*3/uL (0.04-0.35); Eosinophils % (A) 3.9 %; HCT 33.1 % (39.6-50.0); HGB 11.1 g/dL (13.0-17.0); Lymphocytes # (A) 1.37 X 10*3/uL (0.90-5.00); Lymphocytes % (A) 23.5 %; MCH 32.1 pg (27.0-32.0); MCHC 33.5 g/dL (32.0-37.0); MCV 95.7 FL (80.0-97.0); Mean Platelet Volume 11.6 FL (9.5-12.2); Monocytes % (A) 13.7 %; NRBC Per 100 WBC 0 X 10*3/uL (0.00-0.01); Neutrophils # (A) 3.36 X 10*3/uL (1.80-7.70); Neutrophils % (A) 57.5 %; Platelet Count 95 X 10*3/uL (140-440); RBC 3.46 X 10*6/uL (4.40-5.60); RDW 13.7 % (11.5-14.5); WBC 5.84 X 10*3/uL (4.50-10.00)
[2024-06-12 08:59] LABS: Magnesium 1.8 mg/dL (1.5-2.4)
[2024-06-12 09:01] LABS: Blood Urea Nitrogen 19.1 mg/dL (9.0-27.0); Calcium 9.1 mg/dL (8.7-10.3); Carbon Dioxide 25.9 mmol/L (21.6-31.8); Chloride 100 mmol/L (96-109); Glucose 197 mg/dL (70-110); Potassium 4.2 mmol/L (3.5-5.5); Sodium 135 mmol/L (135-145)
[2024-06-12 12:24] LABS: Glucose,Whole Blood 318 mg/dL (70-110)
[2024-06-12 17:16] LABS: Glucose,Whole Blood 241 mg/dL (70-110)
[2024-06-12 20:21] LABS: Glucose,Whole Blood 277 mg/dL (70-110)
[2024-06-13 06:49] LABS: Glucose,Whole Blood 231 mg/dL (70-110)
--- NOTE | 2024-06-13 10:08 | P.PN ---
Subjective Progress Note Date: 06/12/24 This is a 68-year-old male who was recently admitted with weakness and falls had significant EtOH issues with ongoing continued abuse found to have a right humerus fracture and the x-rays and patient is complaining of pain in the area with orthopedics following. Patient with significant DJD as well. Patient with generalized weakness being evaluated by physical therapy recommending rehab and family is also extremely concerned as he is not able to care for himself as the home was noted to be extremely unkept with feces noted throughout the house. Management/social work is following and recommending IPR consult although does not appear appropriate and would benefit from ECF. Patient is afebrile with no reports of chest pain or shortness of breath. 06/12/2024 Patient is seen in follow-up today reports to feeling okay although significantly weak. Patient is inquiring when he can go to rehab to build strength and mobility. Patient is afebrile with no reports of chest pain or shortness of breath. Patient reports to tolerating diet with no reported nausea or vomiting. Patient continues to have some lower extremity and back discomfort and will continue current regimen. Encourage sitting up out of the bed more frequently in the chair at least with all meals. Insurance authorization is being submitted and patient has been accepted at [facility] pending authorization. Social work is following and will discuss further and possible discharge. Patient reports no bowel movement as of yet although is maintained on bowel regimen as needed. Patient reports to passing a lot of gas. Review of systems: Constitutional: No reports of fatigue, fever, or chills Cardiovascular: No reports of chest pain or palpitations Respiratory: No reports of shortness of breath or cough GI: No reports of nausea, no reports of vomiting, reports has not had a bowel movement in a few days although reports a lot of gas. : No reports of dysuria or retention Neurovascular: reports of generalized weakness, right arm pain as well as significant back pain which she reports is chronic All medications have been reviewed PHYSICAL EXAMINATION: GENERAL: The patient is alert and oriented x2, baseline well developed, elderly appearing, thin built, cachectic HEENT: Pupils are round and equally reacting to light. EOMI. no scleral icterus. No conjunctival pallor. Normocephalic, atraumatic. No pharyngeal erythema. No thyromegaly. CARDIOVASCULAR: S1 and S2 muffled PULMONARY: diminished breath sounds bilaterally with no wheezing or rhonchi noted. ABDOMEN: soft. Nontender on exam. Thin, scaphoid non-distended, normoactive bowel sounds. No palpable organomegaly. MUSCULOSKELETAL: No joint swelling or deformity. EXTREMITIES: No cyanosis, clubbing, or pedal edema. Generalized weakness in lower extremities NEUROLOGICAL: Gross neurological examination did not reveal any focal deficits. Diffuse weakness SKIN: No rashes. Assessment: Weakness and fall with gait dysfunction Right humerus fracture, likely old per orthopedics, no plans for surgical intervention recommend conservative management Severe degenerative joint disease Continued ongoing EtOH abuse with concerns of acute alcohol withdrawal on admission, patient is not actively withdrawing at this time Elevated D-dimer without any evidence of PE on imaging Right shoulder pain GI prophylaxis DVT prophylaxis Full code Plan: Recommend to continue with current medications and management per orthopedic services. No plans of surgical intervention at this time recommending conservative management and continued PT/OT therapy Social work following working on discharge planning to possible ECF. Inpatient rehab although patient does not appear to be a candidate for this recommending ECF. Referrals to be sent and patient will also require insurance authorization. Patient has been accepted at [facility] pending authorization. Encouraged increase activity as tolerated with sitting up out of bed more frequently Continue conservative management right upper extremity Patient reports has not had a bowel movement in a few days and will continue as needed bowel regimen Will discuss further with social work regarding discharge planning Due to multiple complex medical issues, overall prognosis is guarded The impression and plan of care has been dictated by nurse richar Landeros as directed. Dr. Luz MD I have performed a history and examination and MDM of this patient, discussed the same with the dictator, and agree with the dictator's assessment and plan a s written ,documented as a scribe. Based on total visit time, I have performed more than 50% of the visit. Any additional findings or plans will be noted. Objective - Vital Signs Vital signs: Vital Signs Temp 98.1 F 06/12/24 07:53 Pulse 89 06/12/24 07:53 Resp 16 06/12/24 07:53 BP 121/70 06/12/24 07:53 Pulse Ox 97 06/12/24 07:53 FiO2 Intake & Output 06/11/24 06/12/24 06/12/24 18:59 06:59 18:59 Intake Total 720 222 480 Output Total 450 500 Balance 270 -278 480 Intake: Oral 720 222 480 Output: Urine 450 500 Other: Voiding Method Urinal Urinal Urinal Diaper Diaper Diaper # Voids 1 - Labs CBC & Chem 7: 06/12/24 04:25 06/12/24 04:25 Labs: Abnormal Lab Results - Last 24 Hours (Table) 06/11/24 06/11/24 06/11/24 Range/Units 12:20 17:25 20:06 RBC (4.40-5.60) X 10*6/uL Hgb (13.0-17.0) g/dL Hct (39.6-50.0) % MCH (27.0-32.0) pg Plt Count (140-440) X 10*3/uL Immature Gran # (0.00-0.04) X 10*3/uL Creatinine (0.6-1.5) mg/dL BUN/Creatinine Ratio (12.00-20.00) Ratio Glucose (70-110) mg/dL POC Glucose (mg/dL) 325 H 233 H 235 H (70-110) mg/dL 06/12/24 06/12/24 06/12/24 Range/Units 04:25 04:25 06:45 RBC 3.46 L (4.40-5.60) X 10*6/uL Hgb 11.1 L (13.0-17.0) g/dL Hct 33.1 L (39.6-50.0) % MCH 32.1 H (27.0-32.0) pg Plt Count 95 L (140-440) X 10*3/uL Immature Gran # 0.05 H (0.00-0.04) X 10*3/uL Creatinine 0.5 L (0.6-1.5) mg/dL BUN/Creatinine Ratio 38.20 H (12.00-20.00) Ratio Glucose 197 H (70-110) mg/dL POC Glucose (mg/dL) 153 H (70-110) mg/dL 06/12/24 Range/Units 07:20 RBC (4.40-5.60) X 10*6/uL Hgb (13.0-17.0) g/dL Hct (39.6-50.0) % MCH (27.0-32.0) pg Plt Count (140-440) X 10*3/uL Immature Gran # (0.00-0.04) X 10*3/uL Creatinine (0.6-1.5) mg/dL BUN/Creatinine Ratio (12.00-20.00) Ratio Glucose (70-110) mg/dL POC Glucose (mg/dL) 156 H (70-110) mg/dL
[2024-06-13 12:29] LABS: Glucose,Whole Blood 321 mg/dL (70-110)
[2024-06-13 17:16] LABS: Glucose,Whole Blood 228 mg/dL (70-110)
[2024-06-13 20:25] LABS: Glucose,Whole Blood 175 mg/dL (70-110)
--- NOTE | 2024-06-14 06:38 | P.PN ---
Subjective Progress Note Date: 06/13/24 This is a 68-year-old male who was recently admitted with weakness and falls had significant EtOH issues with ongoing continued abuse found to have a right humerus fracture and the x-rays and patient is complaining of pain in the area with orthopedics following. Patient with significant DJD as well. Patient with generalized weakness being evaluated by physical therapy recommending rehab and family is also extremely concerned as he is not able to care for himself as the home was noted to be extremely unkept with feces noted throughout the house. Management/social work is following and recommending IPR consult although does not appear appropriate and would benefit from ECF. Patient is afebrile with no reports of chest pain or shortness of breath. 06/12/2024 Patient is seen in follow-up today reports to feeling okay although significantly weak. Patient is inquiring when he can go to rehab to build strength and mobility. Patient is afebrile with no reports of chest pain or shortness of breath. Patient reports to tolerating diet with no reported nausea or vomiting. Patient continues to have some lower extremity and back discomfort and will continue current regimen. Encourage sitting up out of the bed more frequently in the chair at least with all meals. Insurance authorization is being submitted and patient has been accepted at [facility] pending authorization. Social work is following and will discuss further and possible discharge. Patient reports no bowel movement as of yet although is maintained on bowel regimen as needed. Patient reports to passing a lot of gas. 06/13/2024 Patient is seen and evaluated in follow-up today currently pending insurance authorization for [facility] for continued strength and mobility. Patient is afebrile with no reports of chest pain or shortness of breath. Patient continues to report significant weakness and back pain as well as upper arm pain. Continue supportive care bowel regimen as needed. Encouraged increase activity as tolerated with frequent sitting up in the chair. Review of systems: Constitutional: No reports of fatigue, fever, or chills Cardiovascular: No reports of chest pain or palpitations Respiratory: No reports of shortness of breath or cough GI: No reports of nausea, no reports of vomiting, reports has not had a bowel movement in a few days although reports a lot of gas. : No reports of dysuria or retention Neurovascular: reports of generalized weakness, right arm pain as well as significant back pain which he reports is chronic All medications have been reviewed PHYSICAL EXAMINATION: GENERAL: The patient is alert and oriented x2, baseline well developed, elderly appearing, thin built, cachectic HEENT: Pupils are round and equally reacting to light. EOMI. no scleral icterus. No conjunctival pallor. Normocephalic, atraumatic. No pharyngeal erythema. No t hyromegaly. CARDIOVASCULAR: S1 and S2 muffled PULMONARY: diminished breath sounds bilaterally with no wheezing or rhonchi noted. ABDOMEN: soft. Nontender on exam. Thin, scaphoid non-distended, normoactive bowel sounds. No palpable organomegaly. MUSCULOSKELETAL: No joint swelling or deformity. EXTREMITIES: No cyanosis, clubbing, or pedal edema. Generalized weakness in lower extremities NEUROLOGICAL: Gross neurological examination did not reveal any focal deficits. Diffuse weakness SKIN: No rashes. Assessment: Weakness and fall with gait dysfunction Right humerus fracture, likely old per orthopedics, no plans for surgical intervention recommend conservative management Severe degenerative joint disease Continued ongoing EtOH abuse with concerns of acute alcohol withdrawal on admi ssion, patient is not actively withdrawing at this time Elevated D-dimer without any evidence of PE on imaging Right shoulder pain GI prophylaxis DVT prophylaxis Full code Plan: Recommend to continue with current medications and management per orthopedic services. No plans of surgical intervention at this time recommending conservative management and continued PT/OT therapy Social work following working on discharge planning to ECF. Inpatient rehab evaluated although patient does not appear to be a candidate for this recommending ECF. Referrals to be sent and patient will also require insurance authorization. Patient has been accepted at [facility] pending authorization. Encouraged increase activity as tolerated with sitting up out of bed more frequently Continue conservative management right upper extremity Patient reports has not had a bowel movement in a few days and will continue as needed bowel regimen Will discuss further with social work regarding discharge planning. Patient lives at home alone and is not taking care of himself. Patient was independent prior to these recent hospitalizations although has been declining. Family feels he is not able to care for himself. Would benefit from ECF for continued strength and mobility as mentioned previously patient was independent prior to this. Due to multiple complex medical issues, overall prognosis is guarded Possible discharge planning in the next 24 to 48 hours if insurance authorization is obtained The impression and plan of care has been dictated by Nicole Dougherty, nurse practitioner as directed. Dr. Luz MD I have performed a history and examination and MDM of this patient, discussed the same with the dictator, and agree with the dictator's assessment and plan as written ,documented as a scribe. Based on total visit time, I have performed more than 50% of the visit. Any additional findings or plans will be noted. Objective - Vital Signs Vital signs: Vital Signs Temp 98.5 F 06/13/24 06:44 Pulse 79 06/13/24 06:44 Resp 16 06/13/24 06:44 BP 144/75 06/13/24 06:44 Pulse Ox 98 06/13/24 06:44 FiO2 Intake & Output 06/12/24 06/13/24 06/13/24 18:59 06:59 18:59 Intake Total 2520 904 480 Output Total 800 550 Balance 1720 354 480 Weight 50.802 kg Intake: Oral 2520 904 480 Output: Urine 800 550 Other: Voiding Method Urinal Urinal Urinal Diaper Diaper Diaper # Voids 5 - Labs CBC & Chem 7: 06/12/24 04:25 06/12/24 04:25 Labs: Abnormal Lab Results - Last 24 Hours (Table) 06/12/24 06/12/24 06/12/24 Range/Units 12:22 17:15 20:18 POC Glucose (mg/dL) 318 H 241 H 277 H (70-110) mg/dL 06/13/24 Range/Units 06:46 POC Glucose (mg/dL) 231 H (70-110) mg/dL
[2024-06-14 07:06] LABS: Glucose,Whole Blood 152 mg/dL (70-110)
[2024-06-14 08:37] LABS: BUN/Creat Ratio 41.67 Ratio (12.00-20.00); Calcium 9.1 mg/dL (8.7-10.3); Carbon Dioxide 27.4 mmol/L (21.6-31.8); Chloride 100 mmol/L (96-109); Glucose 223 mg/dL (70-110); Magnesium 1.8 mg/dL (1.5-2.4); Potassium 4.5 mmol/L (3.5-5.5); Sodium 135 mmol/L (135-145)
[2024-06-14 08:46] LABS: Basophils # (A) 0.04 X 10*3/uL (0.00-0.10); Basophils % (A) 0.7 %; Eosinophils # (A) 0.19 X 10*3/uL (0.04-0.35); Eosinophils % (A) 3.4 %; HCT 32.4 % (39.6-50.0); HGB 10.8 g/dL (13.0-17.0); Lymphocytes # (A) 1.24 X 10*3/uL (0.90-5.00); Lymphocytes % (A) 21.9 %; MCH 32.3 pg (27.0-32.0); MCHC 33.3 g/dL (32.0-37.0); Mean Platelet Volume 11.6 FL (9.5-12.2); Monocytes # (A) 0.66 X 10*3/uL (0.20-1.00); Monocytes % (A) 11.7 %; NRBC Per 100 WBC 0 X 10*3/uL (0.00-0.01); Neutrophils # (A) 3.47 X 10*3/uL (1.80-7.70); Neutrophils % (A) 61.4 %; Platelet Count 108 X 10*3/uL (140-440); RBC 3.34 X 10*6/uL (4.40-5.60); RDW 13.7 % (11.5-14.5); WBC 5.65 X 10*3/uL (4.50-10.00)
[2024-06-14 12:15] LABS: Glucose,Whole Blood 260 mg/dL (70-110)
[2024-06-14] MEDS: IBUPROFEN 400 MG TAB PO PRN (13:03)
[2024-06-14 17:05] LABS: Glucose,Whole Blood 145 mg/dL (70-110)
[2024-06-14 20:40] LABS: Glucose,Whole Blood 273 mg/dL (70-110)
[2024-06-14 22:57] VITALS: RESP 16
[2024-06-15 07:11] LABS: Glucose,Whole Blood 198 mg/dL (70-110)
--- NOTE | 2024-06-15 09:50 | P.PN ---
Subjective Progress Note Date: 06/14/24 This is a 68-year-old male who was recently admitted with weakness and falls had significant EtOH issues with ongoing continued abuse found to have a right humerus fracture and the x-rays and patient is complaining of pain in the area with orthopedics following. Patient with significant DJD as well. Patient with generalized weakness being evaluated by physical therapy recommending rehab and family is also extremely concerned as he is not able to care for himself as the home was noted to be extremely unkept with feces noted throughout the house. Management/social work is following and recommending IPR consult although does not appear appropriate and would benefit from ECF. Patient is afebrile with no reports of chest pain or shortness of breath. 06/12/2024 Patient is seen in follow-up today reports to feeling okay although significantly weak. Patient is inquiring when he can go to rehab to build strength and mobility. Patient is afebrile with no reports of chest pain or shortness of breath. Patient reports to tolerating diet with no reported nausea or vomiting. Patient continues to have some lower extremity and back discomfort and will continue current regimen. Encourage sitting up out of the bed more frequently in the chair at least with all meals. Insurance authorization is being submitted and patient has been accepted at [facility] pending authorization. Social work is following and will discuss further and possible discharge. Patient reports no bowel movement as of yet although is maintained on bowel regimen as needed. Patient reports to passing a lot of gas. 06/13/2024 Patient is seen and evaluated in follow-up today currently pending insurance authorization for [facility] for continued strength and mobility. Patient is afebrile with no reports of chest pain or shortness of breath. Patient continues to report significant weakness and back pain as well as upper arm pain. Continue supportive care bowel regimen as needed. Encouraged increase activity as tolerated with frequent sitting up in the chair. 06/14/2024 Patient is seen in follow-up today with no acute overnight issues noted. Continuing to await for insurance authorization for [facility] for continued PT/OT therapy. Patient is significantly weak and would benefit from ECF for strength and mobility. Encouraged oral intake and increased activity with sitting up in the chair more frequently. Will continue with as needed bowel regimen as patient is having bowel movements and will make lactulose as needed. Labs reviewed and stable with a hemoglobin of 10.8, white count is 5.65, platelets are 108, sodium 135 with a potassium of 4.5, BUN is 25 and creatinine is 0.6. Blood sugars being monitored and will adjust accordingly for elevated blood sugars. Review of systems: Constitutional: No reports of fatigue, fever, or chills Cardiovascular: No reports of chest pain or palpitations Respiratory: No reports of shortness of breath or cough GI: No reports of nausea, no reports of vomiting, reports having bowel movements and passing gas : No reports of dysuria or retention Neurovascular: reports of generalized weakness, right arm pain as well as s ignificant back pain which he reports is chronic All medications have been reviewed PHYSICAL EXAMINATION: GENERAL: The patient is alert and oriented x2, baseline well developed, elderly appearing, thin built, cachectic HEENT: Pupils are round and equally reacting to light. EOMI. no scleral icterus. No conjunctival pallor. Normocephalic, atraumatic. No pharyngeal erythema. No thyromegaly. CARDIOVASCULAR: S1 and S2 muffled PULMONARY: diminished breath sounds bilaterally with no wheezing or rhonchi noted. ABDOMEN: soft. Nontender on exam. Thin, scaphoid non-distended, normoactive bowel sounds. No palpable organomegaly. MUSCULOSKELETAL: No joint swelling or deformity. EXTREMITIES: No cyanosis, clubbing, or pedal edema. Generalized weakness in lower extremities NEUROLOGICAL: Gross neurological examination did not reveal any focal deficits. Diffuse weakness SKIN: No rashes. Assessment: Weakness and fall with gait dysfunction Right humerus fracture, likely old per orthopedics, no plans for surgical intervention recommend conservative management Severe degenerative joint disease Continued ongoing EtOH abuse with concerns of acute alcohol withdrawal on admission, patient is not actively withdrawing at this time Elevated D-dimer without any evidence of PE on imaging Right shoulder pain GI prophylaxis DVT prophylaxis Full code Plan: Recommend to continue with current medications and management per orthopedic services. No plans of surgical intervention at this time recommending conservative management and continued PT/OT therapy Social work following working on discharge planning to ECF. Inpatient rehab evaluated although patient does not appear to be a candidate for this recommending ECF. Referrals to be sent and patient will also require insurance authorization. Patient has been accepted at [facility] pending authorization. Authorization remains pending at this time. Encouraged increase activity as tolerated with sitting up out of bed more frequently Continue conservative management right upper extremity Patient reports to having bowel movements and will make bowel regimen as needed Will discuss further with social work regarding discharge planning. Patient lives at home alone and is not taking care of himself. Patient was independent prior to these recent hospitalizations although has been declining. Family feels he is not able to care for himself. Would benefit from ECF for continued strength and mobility as mentioned previously patient was independent prior to this. Due to multiple complex medical issues, overall prognosis is guarded Possible discharge planning in the next 24 hours if insurance authorization is obtained The impression and plan of care has been dictated by Nicole Dougherty nurse michaelt itioner as directed. Dr. Luz MD I have performed a history and examination and MDM of this patient, discussed the same with the dictator, and agree with the dictator's assessment and plan as written ,documented as a scribe. Based on total visit time, I have performed more than 50% of the visit. Any additional findings or plans will be noted. Objective - Vital Signs Vital signs: Vital Signs Temp 97.8 F 06/15/24 07:12 Pulse 70 06/15/24 07:12 Resp 16 06/15/24 07:12 BP 169/78 06/15/24 07:12 Pulse Ox 98 06/15/24 07:12 FiO2 Intake & Output 06/14/24 06/15/24 06/15/24 18:59 06:59 18:59 Intake Total 2760 240 Balance 2760 240 Intake: Oral 2760 240 Other: Voiding Method Urinal Urinal Urinal Diaper Diaper Diaper # Voids 10 3 # Bowel Movements 1 - Labs CBC & Chem 7: 06/14/24 03:37 06/14/24 03:37 Labs: Abnormal Lab Results - Last 24 Hours (Table) 06/14/24 06/14/24 06/14/24 Range/Units 12:13 17:04 20:36 POC Glucose (mg/dL) 260 H 145 H 273 H (70-110) mg/dL 06/15/24 Range/Units 07:09 POC Glucose (mg/dL) 198 H (70-110) mg/dL
--- NOTE | 2024-06-15 10:16 | P.DS ---
Providers Date of admission: 06/07/24 23:47 Expected date of discharge: 06/15/24 Attending physician: Katya Burk Consults: 06/09/24 15:26 Consult Physician Routine Consulting Provider: Skyler Silva Consult Reason/Comments: lblyndon djd Do you want consulting provider notified?: Yes 06/11/24 12:22 Consult Physician Urgent Consulting Provider: Regulo Bowen Consult Reason/Comments: IPR eval, weakness, debility Do you want consulting provider notified?: Yes [facility] Course: Final diagnosis Weakness and fall with gait dysfunction Right humerus fracture, likely old per orthopedics, no plans for surgical intervention recommend conservative management Severe degenerative joint disease Continued ongoing EtOH abuse with concerns of acute alcohol withdrawal on admission, patient is not actively withdrawing at this time Elevated D-dimer without any evidence of PE on imaging Right shoulder pain GI prophylaxis DVT prophylaxis Full code Discharge disposition Patient is being discharged in a stable condition with guarded prognosis to [facility] . Patient will follow-up with Dr. Lincoln in the outpatient setting upon discharge. Patient is to continue with outpatient follow-up with orthopedics as scheduled. Total time taken is greater than 35 minutes. Hospital course This is a 68-year-old male who was recently admitted with weakness and falls with gait dysfunction being closely monitored. Patient also with concerns of acute alcohol withdrawal with acute delirium tremens on admission as patient does reportedly drink daily. Apparently family was contacted and visited the patient in his apartment and was noted to be in horrible condition with noted feces throughout and trash and unkempt and brought to the hospital for further evaluation. Patient family feels he is not able to take care of himself although was independent and has been living in this apartment for over 10 years independently. Patient does have a wheelchair and/or walker he reports that fits into the apartment. Patient was evaluated by physical therapy recommending rehab and patient is agreeable. Patient has been accepted at [facility] and has received insurance authorization. Patient will be discharged today. Please refer to other consultation notes for further HPI. Patient will need outpatient follow-up with orthopedics as needed. Currently no reports of chest pain, shortness of breath, or palpitations. Patient is afebrile. No reports of nausea or vomiting and patient is tolerating diet. Patient will be discharged to [facility] today. Guarded prognosis given significant comorbidities Physical exam: Gen: This is a 68-year-old male who is awake, alert and oriented x 2, baseline, thin built, elderly appearing, cachectic HEENT: Head is atraumatic, normocephalic. Pupils equal, round. Sclerae is anicteric. NECK: Supple. No JVD. No lymphadenopathy. No thyromegaly. LUNGS: Diminished breath sounds bilaterally otherwise clear to auscultation. No wheezes or rhonchi. No intercostal retractions. HEART: Regular rate and rhythm. No murmur. ABDOMEN: Soft. Thin bowel sounds are present. No masses. No tenderness. EXTREMITIES: No pedal edema. No calf tenderness. Significant muscle wasting noted with diffuse weakness NEUROLOGICAL: Patient is awake, alert and oriented x2. Cranial nerves 2 through 12 are grossly intact. Please refer to medication reconciliation sheet for a list of medications. The impression and plan of care has been dictated by Nicole Dougherty, Nurse Practitioner as directed. Dr. Antoinette MD I have performed a history and examination and MDM of this patient, discussed the same with the dictator, and agree with the dictator's assessment and plan as written ,documented as a scribe. Based on total visit time, I have performed more than 50% of the visit. Patient Condition at Discharge: Fair Plan - Discharge Summary New Discharge Prescriptions: New Folic Acid 1 mg PO DAILY tab INSULIN LISPRO (HumaLOG) [HumaLOG] 0 unit SQ ACHS each Nystatin 100,000 Unit/gm Powd [Mycostatin Powder] 1 applic TOPICAL TID each Thiamine [Vitamin B-1] 100 mg PO DAILY tab Lactulose [Cephulac] 20 gm PO BID PRN ml PRN Reason: Constipation Ibuprofen [Motrin] 400 mg PO Q6HR PRN tab PRN Reason: Mild Pain Or Fever > 100.5 Multivitamins, Thera [Multivitamin (formulary)] 1 each PO DAILY tab Sennosides [Senokot] 8.6 mg PO DAILY tab Acetaminophen Tab [Tylenol] 650 mg PO Q6HR PRN tab PRN Reason: Mild Pain Or Fever > 100.5 Continue Acamprosate Calcium [Campral] 333 mg PO TID Oxybutynin Chloride [oxyBUTYnin chloride ER] 10 mg PO DAILY HYDROcodone/APAP 10-325MG [[place] 10-325] 1 tab PO Q6H PRN #4 tab PRN Reason: Pain lisinopriL 40 mg PO DAILY metFORMIN HCL 500 mg PO TID Pantoprazole [Protonix] 40 mg PO DAILY Simvastatin [Zocor] 20 mg PO HS Mirtazapine [Remeron] 15 mg PO HS #3 tab No Action Tolterodine ER [Detrol LA] 4 mg PO DAILY Discharge Medication List Tolterodine ER [Detrol LA] 4 mg PO DAILY 11/26/23 [History] Acamprosate Calcium [Campral] 333 mg PO TID 06/07/24 [History] Oxybutynin Chloride [oxyBUTYnin chloride ER] 10 mg PO DAILY 06/07/24 [History] Pantoprazole [Protonix] 40 mg PO DAILY 06/07/24 [History] Simvastatin [Zocor] 20 mg PO HS 06/07/24 [History] lisinopriL 40 mg PO DAILY 06/07/24 [History] metFORMIN HCL 500 mg PO TID 06/07/24 [History] Acetaminophen Tab [Tylenol] 650 mg PO Q6HR PRN tab 06/15/24 [Rx] Folic Acid 1 mg PO DAILY tab 06/15/24 [Rx] HYDROcodone/APAP 10-325MG [[place] 10-325] 1 tab PO Q6H PRN #4 tab 06/15/24 [Rx] INSULIN LISPRO (HumaLOG) [HumaLOG] 0 unit SQ ACHS each 06/15/24 [Rx] Ibuprofen [Motrin] 400 mg PO Q6HR PRN tab 06/15/24 [Rx] Lactulose [Cephulac] 20 gm PO BID PRN ml 06/15/24 [Rx] Mirtazapine [Remeron] 15 mg PO HS #3 tab 06/15/24 [Rx] Multivitamins, Thera [Multivitamin (formulary)] 1 each PO DAILY tab 06/15/24 [Rx] Nystatin 100,000 Unit/gm Powd [Mycostatin Powder] 1 applic TOPICAL TID each 06/15/24 [Rx] Sennosides [Senokot] 8.6 mg PO DAILY tab 06/15/24 [Rx] Thiamine [Vitamin B-1] 100 mg PO DAILY tab 06/15/24 [Rx] Follow up Appointment(s)/Referral(s): Alexis Lincoln MD [STAFF PHYSICIAN] - 1-2 days Skyler Silva DO [Doctor of Osteopathic Medicine] - 2 Weeks Activity/Diet/Wound Care/Special Instructions: [place] Activity as tolerated Recommend follow-up with primary care provider Recommend follow-up with orthopedics outpatient as needed Continue with as needed bowel regimen
[2024-06-15 12:03] VITALS: BP 162/76; PULSE 90; TEMP 98
[2024-06-15 12:14] LABS: Glucose,Whole Blood 288 mg/dL (70-110)
== END 2024-06-15 14:02 | DRG 897 ==
LOC: EC 19:12 → 5NMEDONC 23:47
PROVIDERS: ADMIT Hospitalist; ATTEND Hospitalist
DX: F10.131 Alcohol abuse with withdrawal delirium (principal); D69.6 Thrombocytopenia, unspecified; R62.7 Adult failure to thrive; E11.65 Type 2 diabetes mellitus with hyperglycemia; E87.1 Hypo-osmolality and hyponatremia; G89.29 Other chronic pain; M47.816 Spondylosis without myelopathy or radiculopathy, lumbar region; R26.9 Unspecified abnormalities of gait and mobility; Y90.0 Blood alcohol level of less than 20 mg/100 ml; S42.301S Unspecified fracture of shaft of humerus, right arm, sequela; Z60.2 Problems related to living alone; Z79.84 Long term (current) use of oral hypoglycemic drugs; Z79.899 Other long term (current) drug therapy; W19.XXXA Unspecified fall, initial encounter; Y92.009 Unspecified place in unspecified non-institutional (private) residence as the place of occurrence of the external cause; Z88.1 Allergy status to other antibiotic agents
CPT/HCPCS: 36415; 70450; 71046; 71275; 72100; 72131; 80048; 80053; 80320; 81001; 82550; 83036; 83605; 83690; 83735; 84484; 85025; 85379; 85610; 85730; 87636; 93970; 96361; 96372; 96374; 96375; 96376; 99285